=== PATIENT | female | born 1960 | race Caucasian/White ===

== ENCOUNTER → 2017-05-22 12:52 | Outpatient (CLI) | payer OTHER, SELFPAY ==
[2017-05-22 13:38] LABS: Absolute Lymphocyte Count 1.75 X10^3/ul (0.83-4.51); Absolute Neutrophil Count 5.5 X10^3/uL (2.0-7.7); Basophil# 0.02 X10^3/uL; Basophil% 0.3 % (0-1); Eosinophil# 0.14 X10^3/uL; Eosinophils% 1.8 % (0-5); Hematocrit 37.7 % (37-47); Hemoglobin 11.6 g/dl (12.0-15.0); Lymphocyte # 1.75 X10^3/ul (4.0); Lymphocyte % 22.3 % (19-41); Mean Corp Hgb Conc 30.8 g/gl (32-36); Mean Corpuscular Volume 87.7 fL (81-99); Mean Platelet Vol. 9.5 fl (6.2-12.0); Monocyte# 0.47 X10^3/uL; Neutrophil # 5.47 X10^3/uL (2.7-7.7); Neutrophil % 69.5 % (47-70); POSITIVE COUNT NO; POSITIVE DIFFERENTIAL NO; POSITIVE MORPHOLOGY NO; Platelet Count 231 K/mm3 (150-450); RBC Distribution Width CV 13.8 % (11.6-14.6); RBC Distribution Width SD 43.8 fl (35.1-43.9); White Blood Count 7.9 K/mm3 (4.4-11.0)
[2017-05-22 14:06] LABS: ALB/GLOB Ratio 1.1 RATIO (0.9-2.4); AST(SGOT) 12 U/L (15-37); Alanine Aminotransfer ALT/SGPT 18 U/L (13-56); Albumin, Serum 3.5 g/dL (3.2-5.0); Alkaline Phosphatase 93 U/L (45-117); Anion Gap 6 (5-15); BUN 14 mg/dL (7-18); BUN/Creat Ratio 16.4 RATIO (10-20); Calcium,Total 8.3 mg/dL (8.5-10.1); Chloride 107 mmol/L (98-107); Cholesterol 209 mg/dL (200); Creatinine, Serum 0.85 mg/dL (0.55-1.02); EST Glomerular Filtration Rate 73 mL/min (>60); Est Glom Filt Rate - Afr Amer 88 mL/min (>60); Globulin 3.3 g/dL (2.2-4.2); Glucose 82 mg/dL (74-106); High Density Lipoprotein 36 mg/dL; Potassium 4.2 mmol/L (3.5-5.1); Protein, Total 6.8 g/dL (6.4-8.2); Sodium Level 141 mmol/L (136-145); Triglycerides 444 mg/dL
[2017-05-26 11:25] LABS: ANTINUCLEAR ANTIBODIES DIRECT Negative (Negative)
== END ==
PROVIDERS: Family Provider Family Medicine; PCP Family Medicine; Visit Provider Family Medicine
DX: I49.9 Cardiac arrhythmia, unspecified (principal); L71.9 Rosacea, unspecified; M79.7 Fibromyalgia; R53.83 Other fatigue
CPT/HCPCS: 36415; 80053; 80061; 85025; 86038

== ENCOUNTER 2018-10-26 16:30 | Inpatient (IN) | payer OTHER, SELFPAY ==
[2018-10-26] VITALS (11 sets, daily range): BP systolic 121–154; BP diastolic 73–95; PULSE 98–126; RESP 18–26; TEMP 36.6–38.5; O2SAT 88–96; BMI 34.7; BMI 36.1
--- NOTE | 2018-10-26 16:44 | EKG12_ITS ---
Test Reason : SOB Blood Pressure : / mmHG Vent. Rate : 121 BPM Atrial Rate : 121 BPM P-R Int : 120 ms QRS Dur : 078 ms QT Int : 330 ms P-R-T Axes : 054 044 065 degrees QTc Int : 468 ms Sinus tachycardia Nonspecific T wave abnormality Abnormal ECG Confirmed by CHANNING FITZPATRICK ([id number]), television news video editor RM CAMARA ([id number]) on 11/01/2018 2:05:47 PM Referred By: JEANETTE Confirmed By:CHANNING FITZPATRICK
--- NOTE | 2018-10-26 16:50 | ED.DCSUM_ITS ---
History of Present Illness Chief Complaint: Shortness of Breath Informant: Patient, Significant Other Onset: Days - Cough for approximately 7 days and shortness of breath for approximately 3 days. Context: Sudden Onset Timing: Continuous Quality: Nonproductive cough and dyspnea Location: Respiratory Current Severity: Moderate Maximum Severity: Severe Worsened by: Walking Relieved by: Nothing Associated Symptoms: Previously documented otherwise negative Narrative: Patient is a middle-age woman with history of breast cancer who developed bilateral pulmonary embolus and DVT after she was placed on tamoxifen. She was on Eliquis for a short time.. She states she is cancer free. She presents with cough for 1 week that is nonproductive. Other family members have been ill with nonproductive cough. She reports shortness of breath for the past 3 days. She denies rhinorrhea, congestion or postnasal drainage. She denies decreased hearing, ringing or ears or ear pain. She denies sore throat. She denies chest pain of any type. She denies leg pain, swelling or discoloration. She denies GI symptoms. She does report subjective fever with no night sweats. Prior similar symptoms: No Recent Illness/Hospitalization: No - Past Medical History (1) Breast cancer Status: Acute (2) History of pulmonary embolus (PE) Status: Acute (3) History of DVT of lower extremity Status: Acute (4) History of depression Status: Acute Past Medical History - Allergies and Home Meds Allergies/Adverse Reactions: Allergies No Known Allergies Allergy (Verified 10/26/18 16:32) Primary Care Physician: Radha Eduardo [Primary Care Provider] - Prior records reviewed: Yes Surgical History: mastectomy, - Lives: Spouse/ Significant Other Smoking Status: Never smoker Alcohol: None Drugs: None Review of Systems General: Reports: Fever, Subjective. Denies: Chills, Malaise, Sweats, Weight loss, - Eyes: Denies: Visual changes - bilaterally, Blurred Vision - bilaterally ENT: Denies: Bilateral ear pain, Rhinorrhea, Sore throat Cardiovascular: Denies: Chest pain, Palpitations, Heart racing Respiratory: Reports: Dyspnea, Cough, Dyspnea on exertion. Denies: Sputum, Orthopnea, Paroxysmal nocturnal dyspnea Gastrointestinal: Denies: Abdominal pain, Nausea, Vomiting, Diarrhea, Melena, Hematochezia Genitourinary: Denies: Dysuria, Hematuria, Frequency Musculoskeletal: Denies: Myalgias, Arthralgias, Neck pain, Back pain, Swelling, Extremity Pain, -, - Skin: Denies: Rash, Wounds Neurological: Denies: Headache, Weakness, Numbness Endocrine: Denies: Polyuria, Polydipsia Hematologic: Denies: Easy bruising, Easy bleeding Allergy: Denies: Uticaria, Swelling of the mouth Physical Exam Vital Signs/Narrative: Vital Signs Temp Pulse Resp BP Pulse Ox 10/26/18 16:30 98 F 126 H 26 H 154/95 H 88 Inital Vital Signs reviewed: Yes General: Well nourished, Well developed, No Acute Distress Head: Normocephalic, Atraumatic Eyes: Perrl, EOMI. Negative for: Pale conjunctiva, Scleral icterus ENT: Moist mucous membranes, No rhinorrhea, TM's clear Neck: Supple, Nontender Cardiovascular: Regular rhythm, No murmurs, Normal S1, Normal S2, Tachycardia Respiratory: Chest nontender, Rales - Bilaterally, Rhonchi - Right lower lobe posteriorly, Diminished. Negative for: No distress, CTA bilaterally Abdomen: Soft, Nontender, Nondistended, Normal bowel sounds, No masses Back: Nontender, Normal Inspection Extremities: Nontender, No edema, - - There is no asymmetry, swelling, discoloration, leg vein distention, palpable cords or tenderness along the distribution of the deep venous system. Skin: No rash, No Trauma, Pallor. Negative for: Cyanosis, Diaphoresis, Jaundice, Rash Neurological: Alert, Oriented x3, Cranial nerves II-XII grossly intact, Normal Strength, Normal Sensation Psychological: Normal affect, Normal Mood Diagnostic/Tx/Re-eval Chest X-Ray - ED: 2 View, Read by ED Physician, Normal, Heart, Mediastinum, Bony Structures, Right Infiltrate, Left Infiltrate Impressions Chest X-Ray 10/26/18 17:15 IMPRESSION: Scattered patchy bilateral infiltrates. Degenerative changes of the thoracic spine. Electronically Signed: Jono Ruth MD at 17:26 EDT , Service support , 10/26/18 17:15 Chest PA and Lateral [RAD] Stat Laboratory Results 10/26/18 10/26/18 10/26/18 17:00 17:00 17:02 WBC 9.1 RBC 3.88 L Hgb 11.1 L Hct 35.0 L MCV 90.2 MCH 28.6 MCHC 31.7 L RDW Std Deviation 47.2 H RDW Coeff of Rhys 14.4 Plt Count 152 MPV 9.7 Immature Gran % (Auto) 0.400 Neut % (Auto) 84.4 H Lymph % (Auto) 6.6 L [place] % (Auto) 7.5 Eos % (Auto) 0.8 Baso % (Auto) 0.3 Absolute Neuts (auto) 7.6 Absolute Lymphs (auto) 0.60 L Nucleated RBC % 0 Differential Comment Sodium 143 Potassium 3.9 Chloride 108 H Carbon Dioxide 28.0 Anion Gap 7 BUN 11 Creatinine 1.06 H Estim Creat Clear Calc 48.44 Est GFR (MDRD) Af Amer 69 Est GFR (MDRD) Non-Af 57 L BUN/Creatinine Ratio 10.4 Glucose 118 H Lactic Acid 1.2 Calcium 8.1 L Total Bilirubin 0.30 AST 19 ALT 25 Alkaline Phosphatase 92 Troponin I < 0.015 Total Protein 6.8 Albumin 3.4 Globulin 3.4 Albumin/Globulin Ratio 1.0 X-ray per my interpretation reveals bilateral interstitial infiltrate right upper lobe, right lower lobe and left lower lobe. White count is normal. Patient slightly anemic. Lactate is normal 1.2. Conference of metabolic panel is marked for slight elevation in creatinine of 1.06 with a GFR of 57. Troponin is less than 0.015. Since there is no expiration of patient's hypoxia and abnormal auditory findings CTA of the chest is not indicated. Will treat with Rocephin and azithromycin for community-acquired pneumonia. - EKG Initial EKG Interpretation: Sinus Tachycardia - Ventricular rate is 121. IL interval is 120 ms. QS duration 70 ms. QT duration 330 ms. [place] is normal. There are nonspecific lateral changes noted. There was no old EKG for comparison. - Medical Decision Making With history of cough and dyspnea need to evaluate for pneumonia. Chest x-ray and appropriate blood work was obtained. If chest x-ray is negative patient will need a CTA of her chest to evaluate for pulmonary embolus. EKG was obtained to assess for cardiac ischemia or right heart strain which would raise concern for pulmonary embolus. Patient was placed on oxygen. Since she has bilateral rales albuterol was ordered since rhonchi were noted. She was informed of results and need for admission. ED Disposition - Plan for ED Patient: Disposition: Home or Assisted Living Diagnosis: Respiratory failure with hypoxia, Sinus tachycardia by electrocardiogram, Bilateral pneumonia, Anemia, unspecified Referrals: Radha Eduardo [Primary Care Provider] -
--- NOTE | 2018-10-26 16:50 | NURSING ---
NO OLD EKGS
[2018-10-26] MEDS: 0.9% Normal Saline 1,000 ML 1000 ML IV (16:57)
--- NOTE | 2018-10-26 17:15 | RAD_ITS ---
STUDY: X-RAY CHEST REASON FOR EXAM: Female, 57 years old. Cough x1 week, increased shortness of breath TECHNIQUE: PA and lateral views of the chest. COMPARISON: None. FINDINGS: adult nurse practitioner leads are seen. There are patchy infiltrates of the right upper lobe, left perihilar region, and right lower lobe. There is no demonstrated pleural abnormality. Normal size heart. Normal mediastinum and radha. Normal visualized pulmonary arteries. Normal visualized aortic arch and descending thoracic aorta. There are diffuse degenerative changes of the visualized thoracic spine. Normal visualized ribs, clavicles, and shoulders. There is no demonstrated abnormality of the visualized soft tissue structures of the upper abdomen. RAD/Chest PA and Lateral IMPRESSION: Scattered patchy bilateral infiltrates. Degenerative changes of the thoracic spine. Electronically Signed: Jono Ruth MD at 17:26 EDT , Service support ,
[2018-10-26 17:21] LABS: Absolute Neutrophil Count 7.6 X10^3/uL (2.0-7.7); Basophil# 0.03 X10^3/uL; Basophil% 0.3 % (0-1); Eosinophil# 0.07 X10^3/uL; Eosinophils% 0.8 % (0-5); Hemoglobin 11.1 g/dL (12.0-15.0); Lymphocyte % 6.6 % (19-41); Mean Corp Hgb Conc 31.7 g/dL (32-36); Mean Corpuscular Hgb 28.6 pg (27.0-32.0); Mean Corpuscular Volume 90.2 fL (81-99); Mean Platelet Vol. 9.7 fl (6.2-12.0); Monocyte# 0.68 X10^3/uL; Monocyte% 7.5 % (0-10); NRBC Flagged by Analyzer 0 % (0-5); Neutrophil # 7.64 X10^3/uL (2.7-7.7); Neutrophil % 84.4 % (47-70); POSITIVE DIFFERENTIAL YES; Platelet Count 152 K/mm3 (150-450); RBC Distribution Width CV 14.4 % (11.6-14.6); RBC Distribution Width SD 47.2 fl (35.1-43.9); Red Blood Count 3.88 M/mm3 (4.2-5.4); White Blood Count 9.1 K/mm3 (4.4-11.0)
[2018-10-26] MEDS: Albuterol 2.5 MG/3 ML VIAL.NEB. INHALATION ×2 (17:22→22:06)
[2018-10-26 17:30] LABS: Differential Indicated SCAN CRITERIA MET
[2018-10-26 17:38] LABS: AST(SGOT) 19 U/L (15-37); Alanine Aminotransfer ALT/SGPT 25 U/L (13-56); Albumin, Serum 3.4 g/dL (3.2-5.0); Alkaline Phosphatase 92 U/L (45-117); Anion Gap 7 (5-15); BUN 11 mg/dL (7-18); BUN/Creat Ratio 10.4 RATIO (10-20); Calcium,Total 8.1 mg/dL (8.5-10.1); Chloride 108 mmol/L (98-107); Creatinine, Serum 1.06 mg/dL (0.55-1.02); EST Glomerular Filtration Rate 57 mL/min (>60); Est Glom Filt Rate - Afr Amer 69 mL/min (>60); Estimated Creatinine Clearance 48.44 ml/min; Globulin 3.4 g/dL (2.2-4.2); Glucose 118 mg/dL (74-106); Potassium 3.9 mmol/L (3.5-5.1); Protein, Total 6.8 g/dL (6.4-8.2); Sodium Level 143 mmol/L (136-145)
[2018-10-26 17:44] LABS: International Normalized Ratio 1.1; Prothrombin Time (Protime)PT. 13.5 SECONDS (11.7-14.9)
[2018-10-26 17:45] LABS: Partial Thromboplast Time 51.7 Seconds (24.1-36.2)
[2018-10-26 17:52] LABS: Lactic Acid 1.2 mmol/L (0.4-2.0)
--- NOTE | 2018-10-26 18:49 | PCM.HP.STD ---
Problem List (1) Depression Status: Chronic (2) Fibromyalgia Status: Chronic (3) History of breast cancer Status: Chronic Comment: Status post left mastectomy. (4) History of pulmonary embolus (PE) Status: Chronic (5) History of DVT of lower extremity Status: Chronic (6) Bilateral pneumonia Status: Acute History of Present Illness Date of Admission: 10/26/18 Chief Complaint: Cough, shortness of breath. The patient is a 57 year old F with past medical history as mentioned above presented to the emergency room because of cough and shortness of breath. Her illness started around 7 days ago with cough that was dry without sputum production, associated with mild shortness of breath in the beginning and without aggravating or relieving factors. In the last 3 days, she has been having worsening shortness of breath, initially was exertional and since yesterday, she has been short of breath even at rest, aggravated by any type of activity, minimally relieved with rest, continued to have dry cough without sputum production, associated with mild wheezing and weakness. She did report subjective low-grade fever at home. She stated that 1 of her grandkids was sick with cough and common cold. In the emergency department, patient was febrile, tachycardic, blood pressure was stable, was hypoxic with pulse ox of 88% on room air. Her routine blood work was remarkable for hemoglobin of 11.1 g/dL, otherwise normal. LFT was unremarkable. EKG revealed sinus tachycardia without evidence of acute ischemic changes. Troponin was negative. Chest x-ray revealed bilateral basilar infiltrate, right upper lobe infiltrate. She is being admitted for bilateral community acquired pneumonia with sepsis complicated by acute hypoxic respiratory failure. Past Medical History Past Medical History (Chronic Problems): Chronic Problems Depression (Chronic) Fibromyalgia (Chronic) History of breast cancer (Chronic) Status post left mastectomy. History of pulmonary embolus (PE) (Chronic) History of DVT of lower extremity (Chronic) Allergies No Known Allergies Allergy (Verified 10/26/18 16:32) Home Medications: Ambulatory Orders Medication Instructions Recorded Acetaminophen [Tylenol Extra 1,000 mg PO TID PRN PRN 10/26/18 Strength] Aspirin/Acetaminophen/Caffeine 2 tab PO DAILY PRN PRN 10/26/18 [Excedrin Extra Strength Caplet] Dextromethorphan Polistirex 10 ml PO Q4H PRN PRN 10/26/18 [Delsym] Escitalopram Oxalate 20 mg PO DAILY 10/26/18 Gabapentin [Neurontin] 300 mg PO BID 10/26/18 Gabapentin [Neurontin] 900 mg PO QHS 10/26/18 Ibuprofen 800 mg PO BID PRN PRN 10/26/18 Omeprazole [Prilosec] 20 mg PO QHS 10/26/18 Trazodone HCl 200 mg PO QHS 10/26/18 buPROPion XL [Wellbutrin Xl] 150 mg PO DAILY 10/26/18 Surgical History: mastectomy, - - Left breast reconstructive surgery. 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 Denies: Chills, Weakness, Fatigue Eyes: Denies: Blurred vision, Double vision, Drainage, Redness HEENT: Denies: Difficulty Hearing, Ear Pain, Eye Pain, Nasal Congestion, Sore Throat Cardiovascular: Denies: Chest Pain, Chest Pressure, Chest Tightness, Heaviness, Light Headedness, Palpitations, Syncope Respiratory: Reports: Cough, Shortness of Breath, Shortness of breath upon exertion, Wheezing. Denies: Hemoptysis, Pleuritic Pain, Sputum production Gastrointestinal: Denies: Abdominal Pain, Constipation, Diarrhea, Nausea, Vomiting Genitourinary: Denies: Dysuria, Frequency, Hematuria Musculoskeletal: Denies: Arm Pain, Back Pain, Foot Pain Skin: Denies: Dryness, Rash Neurological: Denies: Balance problems, Double vision, Change in Speech, Slurred speech, Confusion, Focal weakness, Headaches, Incoordination, Numbness Psychiatric: Reports: Depression. Denies: Anxiety Endocrine: Denies: Change in Body Habitus, Polydipsia, Polyuria VTE Information - Inpt Only VTE Present on Admission: No VTE Mechan Device Prophylaxis: None VTE Pharm Prophylaxis ordered?: Yes Patient Problems: Active and Suspected Problems Sinus tachycardia by electrocardiogram (Acute) Bilateral pneumonia (Acute) - Physical Exam General: Alert, Oriented x3, Cooperative, - - Moderately short of breath. HEENT: Atraumatic, PERRLA, EOMI, Normocephalic Oral: Moist Mucosa, No Gingival or Mucosal Lesions/ Ulcerations Neck: Supple, No JVD, Negative Carotid Bruits, Trachea Midline, Thyroid Normal Size and Texture Lungs: No wheeze, Diminished, Rhonchi, Short of Breath, - - Decreased breath sounds at the bases, faint crackles in the left base. Rhonchi. Cardiovascular: Regular rate, Regular Rhythm, Normal S1, Normal S2, No murmurs, PMI Normal, Tachycardic Abdomen: Bowel Sounds Present, Soft, Non Tender, Non-Distended, No Hepato-splenomegaly Extremities: No clubbing, No cyanosis, No edema Skin: No rashes, No breakdown Lymphatic: No Cervical, Supraclavicular, or Inguinal Adenopathy Neurological: Cranial nerves II-XII grossly intact, Motor Exam 5/5 strength throughout Psych/Mental Status: Normal Affect, Appropriate, Alert and oriented to time, place, person, mood and affect Vital Signs Temp Pulse Resp BP Pulse Ox 101.3 F H 120 H 24 H 137/86 H 93 10/26/18 18:10 10/26/18 18:10 10/26/18 18:10 10/26/18 18:10 10/26/18 18:10 Oxygen Flow Rate (L/min) 2 Oxygen Delivery Method Nasal Cannula Weight: 196 lb Body Mass Index (BMI) 34.7 Intake and Output for Last 24 Hours 10/24/18 10/25/18 10/26/18 23:59 23:59 23:59 Intake Total 1000 / 1000 Balance 1000 / 1000 Laboratory Tests Past 24 Hrs 10/26/18 10/26/18 10/26/18 17:00 17:00 17:00 WBC 9.1 RBC 3.88 L Hgb 11.1 L Hct 35.0 L MCV 90.2 MCH 28.6 MCHC 31.7 L RDW Std Deviation 47.2 H RDW Coeff of Rhys 14.4 Plt Count 152 MPV 9.7 Immature Gran % (Auto) 0.400 Neut % (Auto) 84.4 H Lymph % (Auto) 6.6 L [place] % (Auto) 7.5 Eos % (Auto) 0.8 Baso % (Auto) 0.3 Absolute Neuts (auto) 7.6 Absolute Lymphs (auto) 0.60 L Nucleated RBC % 0 Differential Comment PT Pending INR Pending APTT Pending Sodium 143 Potassium 3.9 Chloride 108 H Carbon Dioxide 28.0 Anion Gap 7 BUN 11 Creatinine 1.06 H Estim Creat Clear Calc 48.44 Est GFR (MDRD) Af Amer 69 Est GFR (MDRD) Non-Af 57 L BUN/Creatinine Ratio 10.4 Glucose 118 H Lactic Acid Calcium 8.1 L Total Bilirubin 0.30 AST 19 ALT 25 Alkaline Phosphatase 92 Troponin I < 0.015 Total Protein 6.8 Albumin 3.4 Globulin 3.4 Albumin/Globulin Ratio 1.0 10/26/18 17:02 WBC RBC Hgb Hct MCV MCH MCHC RDW Std Deviation RDW Coeff of Rhys Plt Count MPV Immature Gran % (Auto) Neut % (Auto) Lymph % (Auto) [place] % (Auto) Eos % (Auto) Baso % (Auto) Absolute Neuts (auto) Absolute Lymphs (auto) Nucleated RBC % Differential Comment PT INR APTT Sodium Potassium Chloride Carbon Dioxide Anion Gap BUN Creatinine Estim Creat Clear Calc Est GFR (MDRD) Af Amer Est GFR (MDRD) Non-Af BUN/Creatinine Ratio Glucose Lactic Acid 1.2 Calcium Total Bilirubin AST ALT Alkaline Phosphatase Troponin I Total Protein Albumin Globulin Albumin/Globulin Ratio Clinical Impression(s) from Imaging Studies Chest X-Ray 10/26/18 17:15 IMPRESSION: Scattered patchy bilateral infiltrates. Degenerative changes of the thoracic spine. Electronically Signed: Jono Ruth MD at 17:26 EDT , Service support , Assessment/Plan All Active Problems Sinus tachycardia by electrocardiogram (Acute) Bilateral pneumonia (Acute) This is a 57 years old female patient presented to the medicine because of 1 week history of dry cough, shortness of breath and subjective fever, found to have bilateral infiltrate on chest x-ray and she is being admitted for bilateral community acquired pneumonia with sepsis and complicated by acute hypoxic respiratory failure. #1 acute multilobar bilateral community acquired pneumonia/sepsis: Patient is septic based on tachycardia, fever, tachypnea and obvious source of infection. Lactic acid was normal. Chest x-ray reviewed. Plan: Admit to PCU, cardiac monitoring, IV fluids, blood culture, urine culture, sputum culture, urinalysis, pneumococcal and Legionella antigen, start IV Rocephin and Zithromax, DuoNeb every 6 hours, albuterol as needed, chest physiotherapy, incentive spirometer, repeat CBC and BMP tomorrow morning, PT OT evaluation and treatment. #2 acute hypoxic respiratory failure: Secondary to above. Patient never smoked, never been on oxygen at home. Initially, pulse ox was 88 % on room air. Plan: IV antibiotics, bronchodilators, chest physical therapy, O2 by nasal cannula. #3 history of breast cancer: Status post left mastectomy, history of left reconstructive breast surgery. In remission, never received chemotherapy. #4 fibromyalgia: Stable, continue Tylenol as needed, Neurontin. #5 depression: Stable, continue Wellbutrin and trazodone. #6 history of PE/DVT: Patient was on Eliquis for this, completed treatment. #7 DVT prophylaxis: Subcutaneous Lovenox. This note was generated with [employer] dictation software. It may contain incorrect words, spelling, and punctuation that were not noted in checking the note before signing. Code Visit Inpatient E&M: 46847 Init Hosp L3
[2018-10-26] MEDS: 0.9% Normal Saline 1,000 ML 100 ML IV (20:33)
[2018-10-26] MEDS: Ceftriaxone 1 GM/50 ML BAG IV (20:36)
[2018-10-26 21:04] LABS: Color, Urine Yellow (Yellow); Glucose, Dipstick Normal (Normal); Ketone-Dipstick Negative (Negative); Leukocyte Esterase-Dipstick Negative /ul (Negative); Nitrite-Dipstick Negative (Negative); Occult Blood-Urine Negative /ul (Negative); Protein-Dipstick 30 mg/dl (Negative); Urine Bilirubin Dipstick Negative (Negative); Urine Clarity Sl. Cloudy (Clear); Urine Urobilinogen Normal (Normal)
[2018-10-26] MEDS: guaiFENesin 1,200 MG Tablet 1200 MG PO (22:26)
[2018-10-26] MEDS: Pantoprazole Sodium 20 MG Tablet PO (22:26)
[2018-10-26] MEDS: Gabapentin 300 MG Capsule 900 MG PO (22:26)
[2018-10-26] MEDS: traZODone 100 MG Tablet 200 MG PO (22:26)
[2018-10-26] MEDS: Ibuprofen 400 MG Tablet 800 MG PO (22:30)
[2018-10-27] VITALS (27 sets, daily range): BP systolic 102–161; BP diastolic 59–103; PULSE 68–130; RESP 16–34; TEMP 36.6–37.1; O2SAT 93–97
[2018-10-27 05:25] LABS: Absolute Lymphocyte Count 1.13 X10^3/uL (0.83-4.51); Absolute Neutrophil Count 5.5 X10^3/uL (2.0-7.7); Basophil# 0.03 X10^3/uL; Basophil% 0.4 % (0-1); Eosinophil# 0.06 X10^3/uL; Eosinophils% 0.8 % (0-5); Hematocrit 30.9 % (37-47); Hemoglobin 9.6 g/dL (12.0-15.0); Lymphocyte # 1.13 X10^3/ul (4.0); Lymphocyte % 15.2 % (19-41); Mean Corp Hgb Conc 31.1 g/dL (32-36); Mean Corpuscular Hgb 28.5 pg (27.0-32.0); Mean Corpuscular Volume 91.7 fL (81-99); Mean Platelet Vol. 10.1 fl (6.2-12.0); Monocyte% 9.4 % (0-10); NRBC Flagged by Analyzer 0 % (0-5); Neutrophil # 5.47 X10^3/uL (2.7-7.7); Neutrophil % 73.8 % (47-70); Platelet Count 142 K/mm3 (150-450); RBC Distribution Width CV 14.6 % (11.6-14.6); RBC Distribution Width SD 49.4 fl (35.1-43.9); Red Blood Count 3.37 M/mm3 (4.2-5.4); White Blood Count 7.4 K/mm3 (4.4-11.0)
[2018-10-27 05:38] LABS: Anion Gap 7 (5-15); BUN 11 mg/dL (7-18); BUN/Creat Ratio 11.7 RATIO (10-20); Calcium,Total 7.6 mg/dL (8.5-10.1); Chloride 112 mmol/L (98-107); Creatinine, Serum 0.94 mg/dL (0.55-1.02); EST Glomerular Filtration Rate 65 mL/min (>60); Est Glom Filt Rate - Afr Amer 79 mL/min (>60); Estimated Creatinine Clearance 52.22 ml/min; Glucose 108 mg/dL (74-106); Potassium 3.8 mmol/L (3.5-5.1); Sodium Level 145 mmol/L (136-145)
[2018-10-27] MEDS: Ipratropium/Albuterol Sulfate 3 ML AMPUL.NEB INHALATION ×2 (06:52→13:04)
[2018-10-27] MEDS: 0.9% Normal Saline 1,000 ML 100 ML IV (07:08)
[2018-10-27] MEDS: 0.9% NaCl Peripheral Flush Adult/Peds IV ×3 (07:09→16:32)
[2018-10-27] MEDS: buPROPion (XL) 150 MG TABLET.XL PO (08:35)
[2018-10-27] MEDS: Escitalopram Oxalate 20 MG Tablet PO (08:35)
[2018-10-27] MEDS: Gabapentin 300 MG Capsule PO ×2 (08:35→16:35)
[2018-10-27] MEDS: guaiFENesin 1,200 MG Tablet 1200 MG PO ×2 (08:35→21:13)
[2018-10-27] MEDS: Enoxaparin 40 MG/0.4 ML Syringe SC (08:38)
[2018-10-27] MEDS: Ibuprofen 400 MG Tablet 800 MG PO ×2 (08:38→21:19)
--- NOTE | 2018-10-27 08:39 | PN_ITS ---
Patient Problems: Active and Suspected Problems Respiratory failure with hypoxia (Acute) Anemia, unspecified (Acute) Sinus tachycardia by electrocardiogram (Acute) Bilateral pneumonia (Acute) Subjective: Day #2 Rocephin and azithromycin The patient is a 57-year-old female with a past medical history of depression, fibromyalgia, breast cancer (status post left mastectomy), pulmonary emboli, DVTs of the lower extremity and obesity who presented to the emergency department at [facility] on 10/26/2018 complaining of cough and shortness of breath that started approximately 7 days prior to presentation to the emergency department. Vital signs at presentation to the emergency department were temperature 98 ?F, pulse rate 126, blood pressure 154/95, respiratory rate 26 and she was 88% saturated on room air. Pulse ox on a 2 L nasal cannula was 95%. White blood cell count was 9.1 with a left shift. Hemoglobin was 11.1 and platelets are 152,000. PTT was prolonged at 51.7 the PT was within normal limits. CMP was remarkable for an increased creatinine at 1.06. Creatinine in May 2017 was 0.85. A random blood sugar was 118. Lactic acid was normal at 1.2. LFTs were unremarkable. UA was negative for leukocyte esterase. Chest x-ray showed scattered patchy bilateral infiltrates. She was admitted to the hospital with sepsis secondary to community-acquired pneumonia. She was started on Rocephin, azithromycin and aerosolized bronchodilators. All events of the past 24 hours of been reviewed. T-max is 101.3 current temp is 98.3. Tachycardia has improved with hydration and control of the fever. Blood pressures are stable. She is 93 to 94% saturated on the 3 L nasal cannula. All lab was personally reviewed. The white blood cell count today is 7.4 with 73.8% neutrophils. Hemoglobin is 9.6 and the MCV is 91.7 with an increased RDW standard deviation of 49.4. Platelets are mildly decreased at 142,000 today. Creatinine has improved with hydration and is 0.94 today, down from 1.06 at admission. Legionella and streptococcal antigens in the urine were negative. Urine and blood cultures are pending. Respiratory panel is negative. She tells me that her grandchildren have recently been sick with coughs. She has chronic PND and there has been no change recently. Denies sore throat, diarrhea, CP, palpitations, calf pain, hemoptysis. cough is dry. She had VTE in the past, about 2 years ago, and it was thought to be due to Tamoxifen. Anticoagulation was stopped after about 6 months. She had the mastectomy in 2013. She has previously been seen by an oncologist in [place] but no longer follows with oncology. Her PCP orders her MMG's. - Physical Exam General: Alert, Oriented x3, Cooperative, Well developed, Well nourished, - - pale HEENT: Atraumatic, PERRLA, EOMI, Normocephalic Oral: Dry Mucosa Neck: Supple, Negative Carotid Bruits, No Nodes, Trachea Midline Lungs: No rales, Diminished, Tachypneic, Wheezes, - - Positive conversational dyspnea, no accessory muscle use Cardiovascular: Regular rate, Normal S1, Normal S2, No murmurs, No Gallop, Tachycardic, - - Telemetry shows sinus tachycardia with occasional PVC Abdomen: Bowel Sounds Present, Soft, Non Tender, Non-Distended Extremities: No clubbing, No cyanosis, No edema, No Calf Tenderness, Peripheral Pulses Normal, - - Negative Homans sign, negative Agapito. the right calf feels more firm than the left Skin: No rashes, No breakdown Musculoskeletal: No Muscle Wasting Neurological: Cranial nerves II-XII grossly intact, Neuro grossly intact Psych/Mental Status: Normal Affect, Appropriate Vital Signs Temp Pulse Resp BP Pulse Ox 98.3 F 113 H 16 108/67 93 10/27/18 03:55 10/27/18 07:30 10/27/18 06:52 10/27/18 03:55 10/27/18 06:52 Oxygen Flow Rate (L/min) 3 Oxygen Delivery Method Nasal Cannula Weight: 197 lb 8.547 oz Body Mass Index (BMI) 36.1 Intake and Output for Last 24 Hours 10/25/18 10/26/18 10/27/18 23:59 23:59 23:59 Intake Total 2170 / 2170 715 / 715 Balance 2170 / 2170 715 / 715 Microbiology Past 72 Hours 10/26/18 20:20 Streptococcus pneumoniae Antigen (M - Final Urine, Clean Catch 10/26/18 20:20 Legionella Antigen - Final Urine, Clean Catch Laboratory Tests Past 24 Hrs 10/26/18 10/26/18 10/26/18 17:00 17:00 17:00 WBC 9.1 RBC 3.88 L Hgb 11.1 L Hct 35.0 L MCV 90.2 MCH 28.6 MCHC 31.7 L RDW Std Deviation 47.2 H RDW Coeff of Rhys 14.4 Plt Count 152 MPV 9.7 Immature Gran % (Auto) 0.400 Neut % (Auto) 84.4 H Lymph % (Auto) 6.6 L Dillon % (Auto) 7.5 Eos % (Auto) 0.8 Baso % (Auto) 0.3 Absolute Neuts (auto) 7.6 Absolute Lymphs (auto) 0.60 L Nucleated RBC % 0 Differential Comment PT 13.5 INR 1.1 APTT 51.7 H Sodium 143 Potassium 3.9 Chloride 108 H Carbon Dioxide 28.0 Anion Gap 7 BUN 11 Creatinine 1.06 H Estim Creat Clear Calc 48.44 Est GFR (MDRD) Af Amer 69 Est GFR (MDRD) Non-Af 57 L BUN/Creatinine Ratio 10.4 Glucose 118 H Lactic Acid Calcium 8.1 L Total Bilirubin 0.30 AST 19 ALT 25 Alkaline Phosphatase 92 Troponin I < 0.015 Total Protein 6.8 Albumin 3.4 Globulin 3.4 Albumin/Globulin Ratio 1.0 Urine Color Urine Clarity Urine pH Ur Specific [place] Urine Protein Urine Glucose (UA) Urine Ketones Urine Occult Blood Urine Nitrite Urine Bilirubin Urine Urobilinogen Ur Leukocyte Esterase 10/26/18 10/26/18 10/27/18 17:02 20:20 05:15 WBC 7.4 RBC 3.37 L Hgb 9.6 L Hct 30.9 L MCV 91.7 MCH 28.5 MCHC 31.1 L RDW Std Deviation 49.4 H RDW Coeff of Rhys 14.6 Plt Count 142 L MPV 10.1 Immature Gran % (Auto) 0.400 Neut % (Auto) 73.8 H Lymph % (Auto) 15.2 L Dillon % (Auto) 9.4 Eos % (Auto) 0.8 Baso % (Auto) 0.4 Absolute Neuts (auto) 5.5 Absolute Lymphs (auto) 1.13 Nucleated RBC % 0 Differential Comment PT INR APTT Sodium Potassium Chloride Carbon Dioxide Anion Gap BUN Creatinine Estim Creat Clear Calc Est GFR (MDRD) Af Amer Est GFR (MDRD) Non-Af BUN/Creatinine Ratio Glucose Lactic Acid 1.2 Calcium Total Bilirubin AST ALT Alkaline Phosphatase Troponin I Total Protein Albumin Globulin Albumin/Globulin Ratio Urine Color Yellow Urine Clarity Sl. Cloudy Urine pH 5.0 Ur Specific [place] 1.020 Urine Protein 30 H Urine Glucose (UA) Normal Urine Ketones Negative Urine Occult Blood Negative Urine Nitrite Negative Urine Bilirubin Negative Urine Urobilinogen Normal Ur Leukocyte Esterase Negative 10/27/18 05:15 WBC RBC Hgb Hct MCV MCH MCHC RDW Std Deviation RDW Coeff of Rhys Plt Count MPV Immature Gran % (Auto) Neut % (Auto) Lymph % (Auto) Dillon % (Auto) Eos % (Auto) Baso % (Auto) Absolute Neuts (auto) Absolute Lymphs (auto) Nucleated RBC % Differential Comment PT INR APTT Sodium 145 Potassium 3.8 Chloride 112 H Carbon Dioxide 26.0 Anion Gap 7 BUN 11 Creatinine 0.94 Estim Creat Clear Calc 52.22 Est GFR (MDRD) Af Amer 79 Est GFR (MDRD) Non-Af 65 BUN/Creatinine Ratio 11.7 Glucose 108 H Lactic Acid Calcium 7.6 L Total Bilirubin AST ALT Alkaline Phosphatase Troponin I Total Protein Albumin Globulin Albumin/Globulin Ratio Urine Color Urine Clarity Urine pH Ur Specific [place] Urine Protein Urine Glucose (UA) Urine Ketones Urine Occult Blood Urine Nitrite Urine Bilirubin Urine Urobilinogen Ur Leukocyte Esterase Medical Necessity - Tobacco Use Smoking Status: Never smoker Assessment/Plan All Active Problems Respiratory failure with hypoxia (Acute) Anemia, unspecified (Acute) Sinus tachycardia by electrocardiogram (Acute) Bilateral pneumonia (Acute) Day #2 Rocephin and azithromycin Impressions 1. CAP with multilobar infiltrates and a non-productive cough. Respiratory panel negative. Legionella and streptococcal antigens are negative. Continue Rocephin and azithromycin. Continue incentive spirometry and PEP. Continue aerosolized bronchodilators. Start steroids for the diminished BS's, poor air exchange and the wheezing. 2. 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 VTE was thought to be due to Tamoxifen and she has not been anticoagulated because the Tamoxifen was discontinued. She has been sick for a week and lying around. Has not seen an oncologist an PCP is doing surveillance for recurrent breast CA. With the ST and increased dyspnea past few days I am concerned about possible PE and am ordering a CTA of the chest. Also ordering TSH and T4 since her dtr has been diagnosed with possible Samuel's thyroiditis. If the TSH is normal and the CTA is negative will DC the Duoneb and Albuterol and start Atrovent aerosols. 3. hx of breast CA - mastectomy in 2013. 4. Fibromyalgia- gabapentin and ibuprofen continued 5. Obesity 6. Acute respiratory insufficiency with hypoxia 7. Normochromic normocytic anemia with an increased RDW Await the results of the urgent CTA. Code Visit Inpatient E&M: 26009 Subs Hosp L3
--- NOTE | 2018-10-27 11:29 | CASEMGMT ---
RN CM Assessment Presentation: Bilateral pneumonia. Intro role of CM and purpose of RN CM assessment to patient in room. Pt is awake, alert and able to participate in assessment. Demographics, PCP and Pharmacy verified. Pt states she is very independent, does not require any assistance with daily care. No oxygen use prior to admission. Discussed if O2 would be needed at home, CM would return to provide DME list and assist with set up. PCP: Dr. Mcgee Preferred [facility]acy[facility] Insurance: [employer] for [employer] Prescription Benefit: yes [place]NO[place]: , [place] Living Arrangements: Lives independently with her . Pt states no care needs with ADL's, home care. Transportation: drives or family can drive. DME: none HHC: none Patient DC goals: none DC PLAN: home. Pt continues on 2L [place], may need Home oxygen testing prior to discharge. Ricci FERGUSONN RN ACM
--- NOTE | 2018-10-27 15:04 | CT_ITS ---
STUDY: CTA CHEST REASON FOR EXAM: Female, 57 years old. Several day history of shortness of breath. History of pulmonary emboli. RADIATION DOSAGE (If Supplied By Facility): CTDIvol = ( 11.36 ) mGy, DLP = ( 557.54 ) mGycm TECHNIQUE: The examination was performed with the intravenous administration of 100 IV Isovue 300. Post-processing of the angiographic images was performed, with multiplanar reformation and 3D reconstruction. Individualized dose optimization techniques were used for this CT. COMPARISON: None. FINDINGS: A left-sided breast prosthesis is seen. Normal enhancement of the main pulmonary artery and right and left pulmonary arteries. Normal enhancement of the bilateral peripheral pulmonary arteries. There is no demonstrated pulmonary embolism. Normal thoracic aorta and visualized great vessels. There is no demonstrated aortic dissection. Normal heart and pericardium. There are visualized mediastinal lymph nodes, which are within normal size limits, and with normal morphology. Normal hilar regions. Normal visualized trachea and bronchi. The lungs are well expanded. Diffuse bilateral patchy infiltrates in the upper lobes as well as the lower lobes. There is also evidence of increased interstitial markings in both lungs suggestive of mild edema Small bilateral pleural effusions. Normal chest wall structures. There are degenerative changes of thoracic spine. There is a 1.6 cm x 1.6 cm hypodensity in the anterior aspect of the left lobe of the liver most likely representing a small cyst. CT/CTA Chest W/WO Contrast IMPRESSION: Small bilateral pleural effusions with bilateral pulmonary infiltrates. No evidence of pulmonary embolism. Electronically Signed: Gene Herron, at 15:51 EDT , Service support ,
--- NOTE | 2018-10-27 15:05 | ECHOCS_ITS ---
Reason For Study: DYSPNEA/SOB, ABN EKG, TACHYCARDIA Procedure This was a 2D Doppler, Color Flow transthoracic echocardiogram. The study was technically difficult. Exam performed portable in patient room. Left Ventricle Normal LV size. The estimated ejection fraction is 40-45 %. Stage 1 diastolic dysfunction. [place] : Hypokinetic. Anteroseptal Hypokinesis. Right Ventricle Normal RV size. Normal systolic function. Atria Normal left atrium. Normal right atrium. No doppler evidence for ASD. Mitral Valve There is no stenosis. No mitral valve insufficiency. Tricuspid Valve There is no tricuspid stenosis. Unable to estimate RV systolic pressure due to inadequate jet, pulmonary artery pressure probably normal. Aortic Valve Trisinus/trileaflet aortic valve. There is no aortic stenosis. No aortic valve insufficiency. Pulmonic Valve There is no pulmonic valvular stenosis. No pulmonic valve insufficiency. Great Vessels Normal aortic root. Pericardium/Pleural No pericardial effusion. Medication Diluted definity 3ml given slow IV push to enhance endocardial definition. MMode/2D Measurements & Calculations LVIDd: 5.7 cm IVSd: 1.0 cm Ao root diam: 3.2 cm LVIDs: 4.5 cm LVPWd: 1.1 cm RVDd: 3.8 cm FS: 21.6 % LAV(MOD-bp): 35.3 ml LVAd ap4: 36.4 cm2 SV(MOD-sp4): 53.5 ml LAV(MOD-bp) Indexed: 18.6 ml/m2 EDV(MOD-sp4): 132.3 ml LAV(MOD-sp2): 35.9 ml EDV(sp4-el): 140.3 ml LAV(MOD-sp4): 33.0 ml LVAs ap4: 26.2 cm2 ESV(MOD-sp4): 78.8 ml ESV(sp4-el): 82.2 ml EF(MOD-sp4): 40.5 % EF(sp4-el): 41.4 % SV(sp4-el): 58.0 ml LA A4 area: 14.0 cm2 LA dimension(2D): 4.1 cm RA A4 area: 10.7 cm2 Time Measurements MV dec time: 0.20 sec Doppler Measurements & Calculations MV E max melvin: 137.1 cm/sec Lat Peak E' Melvin: 8.3 cm/sec Med Peak E' Melvin: 6.6 cm/sec MV A max melvin: 82.2 cm/sec E/E' lat: 16.5 E/E' med: 20.9 MV E/A: 1.7 Ao V2 max: 135.9 cm/sec LV V1 max: 82.4 cm/sec PA V2 max: 95.4 cm/sec Ao max P.4 mmHg LV V1 max P.7 mmHg TR max melvin: 275.8 cm/sec TR max P.4 mmHg Interpretation Summary The study was technically difficult. Contrast injection was performed. Diluted definity 3ml given slow IV push to enhance endocardial definition. The estimated ejection fraction is 40-45 %. Stage 1 diastolic dysfunction. [place] : Hypokinetic. Anteroseptal Hypokinesis The study was technically difficult. Contrast injection was performed. Ordering Physician: Yesica Sharp Referring Physician: RAHUL HUBBARD Performed By: Luz Hermosillo RDCS
[2018-10-27 15:54] LABS: T4 Free Direct 0.91 ng/dL (0.76-1.46); Thyroid Stim Hormone (TSH) 0.58 uIU/mL (0.358-3.74)
--- NOTE | 2018-10-27 16:14 | EKG12_ITS ---
Test Reason : Blood Pressure : / mmHG Vent. Rate : 124 BPM Atrial Rate : 124 BPM P-R Int : 142 ms QRS Dur : 076 ms QT Int : 280 ms P-R-T Axes : 069 056 -16 degrees QTc Int : 402 ms Sinus tachycardia Nonspecific ST and T wave abnormality Abnormal ECG When compared with ECG of 26-OCT-2018 17:05, MANUAL COMPARISON REQUIRED, DATA IS UNCONFIRMED Confirmed by ENRIQUE NEAL, JOHNATHON ([id number]), book or script editor RM CAMARA ([id number]) on 11/01/2018 4:07:26 PM Referred By: YOCASTA Confirmed By:HOLDEN NUNEZ MD
[2018-10-27 16:41] LABS: Allen Test POS; Base Excess -2 mmol/L (-2 to +2); Bicarbonate 22.7 mmol/L (22-26); Blood Gas Specimen Type ART; O2 Delivery Device Nasal Can; PO2 69 mmHG (75-100); SITE R Radial; SO2 93 % (95-99); Time Given 1625; Total Carbon Dioxide 24 mmol/L; pCO2 38.3 mmHg (35-45); pH 7.38 (7.35-7.45)
[2018-10-27] MEDS: Ipratropium 0.5 MG/2.5 ML SOLUTION INHALATION ×3 (16:43→22:46)
[2018-10-27] MEDS: cloNIDine HCl 0.1 MG Tablet PO ×2 (19:02→21:14)
--- NOTE | 2018-10-27 19:04 | NURSING ---
In ICU 5 per bed from PCU. PCU RNs in attendance
[2018-10-27] MEDS: 0.9% Normal Saline 1,000 ML 30 ML IV (19:51)
[2018-10-27] MEDS: Pantoprazole Sodium 20 MG Tablet PO (21:13)
[2018-10-27] MEDS: traZODone 100 MG Tablet 200 MG PO (21:13)
[2018-10-27] MEDS: Gabapentin 300 MG Capsule 900 MG PO (21:13)
[2018-10-27] MEDS: Ceftriaxone 1 GM/50 ML BAG IV (22:17)
[2018-10-28] VITALS (26 sets, daily range): BP systolic 101–143; BP diastolic 57–85; PULSE 65–130; RESP 12–26; TEMP 36.3–36.8; O2SAT 90–98
[2018-10-28 04:29] LABS: Hematocrit 31.3 % (37-47); Hemoglobin 9.8 g/dL (12.0-15.0); Mean Corp Hgb Conc 31.3 g/dL (32-36); Mean Corpuscular Hgb 28.7 pg (27.0-32.0); Mean Corpuscular Volume 91.5 fL (81-99); Mean Platelet Vol. 10.7 fl (6.2-12.0); Platelet Count 153 K/mm3 (150-450); RBC Distribution Width CV 14.5 % (11.6-14.6); RBC Distribution Width SD 48.8 fl (35.1-43.9); Red Blood Count 3.42 M/mm3 (4.2-5.4); White Blood Count 7.1 K/mm3 (4.4-11.0)
[2018-10-28] MEDS: Acetaminophen 325 MG Tablet 650 MG PO (04:36)
[2018-10-28] MEDS: 0.9% NaCl Peripheral Flush Adult/Peds IV ×4 (04:38→22:42)
[2018-10-28 04:48] LABS: Anion Gap 7 (5-15); BUN 14 mg/dL (7-18); BUN/Creat Ratio 17.5 RATIO (10-20); Calcium,Total 8.1 mg/dL (8.5-10.1); Chloride 110 mmol/L (98-107); EST Glomerular Filtration Rate 79 mL/min (>60); Est Glom Filt Rate - Afr Amer 95 mL/min (>60); Estimated Creatinine Clearance 61.36 ml/min; Glucose 140 mg/dL (74-106); Magnesium 2.1 mg/dL (1.6-2.6); Potassium 4.4 mmol/L (3.5-5.1); Sodium Level 142 mmol/L (136-145)
[2018-10-28 04:59] LABS: Phosphorus 2.9 mg/dL (2.5-4.9)
--- NOTE | 2018-10-28 06:30 | CON.PCM_ITS ---
Reason for Consult Date of Consultation: 10/28/18 Reason for Consultation: Respiratory failure History of Present Illness: The patient is a 57-year-old female, with a history as outlined below, who initially presented to the emergency department on October 26 with complaints of shortness of breath and cough. The patient's medical history does include that for breast cancer and venous thromboembolic disease. The patient is a lifelong non-smoker, but does report having grown up in a smoking household. She does not utilize any inhalers at her baseline, as she has never been diagnosed with COPD or asthma. She normally, at her baseline, does not have any significant respiratory limitations. She denies ever having been diagnosed with any cardiac pathology in the past. She does report having been told that she audibly snores when she sleeps. In addition, she does report occasionally waking up in the middle the night gasping for air. She additionally reports the presence of nonrestorative sleep along with excessive daytime sleepiness. Nevertheless, the patient has never been formally evaluated for underlying sleep disordered breathing. On presentation to the emergency department, the patient was noted to be afebrile, tachycardic and tachypnea, but was hemodynamically stable. She was initially noted to be saturating 88% on room air. Initial laboratory evaluation revealed no evidence of a leukocytosis. There was evidence of normocytic anemia with a hemoglobin of 11 g/dL. INR was noted to be normal at 1.1. Chemistry profile revealed evidence of acute kidney injury with creatinine of 1.06. Serum lactate was within normal limits. Troponin was negative. Hepatic function profile was unremarkable. Urinalysis was unremarkable. A CTA chest was subsequently obtained which revealed no evidence for pulmonary embolism. There was, nevertheless, evidence of diffuse bilateral multilobar infiltrates. The patient was subsequently started on antibiotics and bronchodilators for suspected community-acquired pneumonia. The patient was initially admitted to the progressive care unit for further management. On the evening of October 27, the patient was noted by her hospitalist to have worsening in her respiratory status with tachypnea and pursed lip breathing. She was subsequently transferred to the medical intensive care unit for further management. No significant overnight events were noted by the nursing staff. While the patient's supplemental oxygen was initially increased to 5 L/min, over the course of the evening he was weaned down to 2 L/min. Past Medical History Past Medical History (Chronic Problems): Chronic Problems Depression (Chronic) Fibromyalgia (Chronic) History of breast cancer (Chronic) Status post left mastectomy. History of pulmonary embolus (PE) (Chronic) History of DVT of lower extremity (Chronic) Allergies tamoxifen Allergy (Verified 10/26/18 19:21) PE/DVT's Home Medications: Ambulatory Orders Medication Instructions Recorded Acetaminophen [Tylenol Extra 1,000 mg PO TID PRN PRN 10/26/18 Strength] Aspirin/Acetaminophen/Caffeine 2 tab PO DAILY PRN PRN 10/26/18 [Excedrin Extra Strength Caplet] Dextromethorphan Polistirex 10 ml PO Q4H PRN PRN 10/26/18 [Delsym] Escitalopram Oxalate 20 mg PO DAILY 10/26/18 Gabapentin [Neurontin] 300 mg PO BID 10/26/18 Gabapentin [Neurontin] 900 mg PO QHS 10/26/18 Ibuprofen 800 mg PO BID PRN PRN 10/26/18 Omeprazole [Prilosec] 20 mg PO QHS 10/26/18 Trazodone HCl 200 mg PO QHS 10/26/18 buPROPion XL [Wellbutrin Xl] 150 mg PO DAILY 10/26/18 Surgical History: mastectomy, - - Left breast reconstructive surgery. Psychiatric History: Depression [employer] History: No pertinent [employer] history Lives: Spouse/ Significant Other Smoking Status: Never smoker Alcohol: None Drugs: None - *Family History Maternal History Items: No pertinent history Paternal History Items: Cancer, COPD Sibling History Items: Heart Disease Review of Systems Constitutional: Reports: Malaise. Denies: Chills, Fever Eyes: Denies: Blurred vision, Double vision HEENT: Denies: Head Aches, Sinus Congestion, Sinus Drainage Cardiovascular: Denies: Chest Pain, Palpitations Respiratory: Reports: Cough, Shortness of Breath. Denies: Sputum production Gastrointestinal: Denies: Abdominal Pain, Nausea, Vomiting Genitourinary: Denies: Dysuria Musculoskeletal: Denies: Joint Pain, Joint Tenderness Skin: Denies: Rash, Wounds Neurological: Denies: Numbness, Tingling, Focal weakness Psychiatric: Reports: Anxiety, Depression Hematologic/ Lymphatic: Reports: Anemia, Hx of blood clot Patient Problems: Active and Suspected Problems Respiratory failure with hypoxia (Acute) Anemia, unspecified (Acute) Sinus tachycardia by electrocardiogram (Acute) Bilateral pneumonia (Acute) Objective: The patient's most recent lab work, culture data and imaging studies have all been personally reviewed. Strep and urine Legionella antigens were both negative. Respiratory viral panel was negative. Blood and urine cultures are pending. - Physical Exam General: Alert, Oriented x3, Cooperative, No apparent distress, - - Sitting upright in bed eating breakfast. HEENT: Atraumatic, PERRLA, Normocephalic Oral: No Gingival or Mucosal Lesions/ Ulcerations Neck: Supple, No Nodes, Trachea Midline Lungs: No rhonchi, No wheeze, No rales, Diminished Cardiovascular: Regular rate, Regular Rhythm, Normal S1, Normal S2, No murmurs Abdomen: Bowel Sounds Present, Soft, Non Tender, Obese Extremities: No clubbing, No cyanosis, No edema Skin: No breakdown Musculoskeletal: No Tenderness to Palpation of Joints or Extremities, No Muscle Wasting Lymphatic: No Cervical, Supraclavicular, or Inguinal Adenopathy Neurological: Cranial nerves II-XII grossly intact, Neuro grossly intact Psych/Mental Status: Alert and oriented to time, place, person, mood and affect Vital Signs Temp Pulse Resp BP Pulse Ox 98.1 F 67 18 113/74 93 10/28/18 04:00 10/28/18 06:00 10/28/18 06:00 10/28/18 06:00 10/28/18 06:00 Oxygen Flow Rate (L/min) 2 Oxygen Delivery Method Nasal Cannula Weight: 199 lb 8.293 oz Body Mass Index (BMI) 36.1 Intake and Output for Last 24 Hours 10/26/18 10/27/18 10/28/18 23:59 23:59 23:59 Intake Total 2170 / 2170 2743.83 / 3043.83 651.0 / 651.0 Output Total 550 / 550 Balance 2170 / 2170 2743.83 / 2643.83 101.0 / 101.0 Microbiology Past 72 Hours 10/27/18 Unknown Respiratory Panel (PCR) - Final Mucosa - Nose 10/26/18 20:20 Streptococcus pneumoniae Antigen (M - Final Urine, Clean Catch 10/26/18 20:20 Legionella Antigen - Final Urine, Clean Catch Laboratory Tests Past 24 Hrs 10/27/18 10/27/18 10/28/18 05:15 16:37 04:20 WBC 7.1 RBC 3.42 L Hgb 9.8 L Hct 31.3 L MCV 91.5 MCH 28.7 MCHC 31.3 L RDW Std Deviation 48.8 H RDW Coeff of Rhys 14.5 Plt Count 153 MPV 10.7 Specimen Type ART Sample Site R Radial pH 7.38 Bicarbonate Actual 22.7 POC Total CO2 24 Base Excess -2 O2 Saturation 93 L ABG pCO2 38.3 ABG pO2 69 L Von Test POS O2 Delivery Device Nasal Can Liter Flow 3.0 Blood Gas Notified Whom [facility] Blood Gas Notified Time 1625 Sodium Potassium Chloride Carbon Dioxide Anion Gap BUN Creatinine Estim Creat Clear Calc Est GFR (MDRD) Af Amer Est GFR (MDRD) Non-Af BUN/Creatinine Ratio Glucose Calcium Phosphorus Magnesium TSH 0.58 Free T4 0.91 10/28/18 10/28/18 04:20 04:20 WBC RBC Hgb Hct MCV MCH MCHC RDW Std Deviation RDW Coeff of Rhys Plt Count MPV Specimen Type Sample Site pH Bicarbonate Actual POC Total CO2 Base Excess O2 Saturation ABG pCO2 ABG pO2 Von Test O2 Delivery Device Liter Flow Blood Gas Notified Whom Blood Gas Notified Time Sodium 142 Potassium 4.4 Chloride 110 H Carbon Dioxide 25.0 Anion Gap 7 BUN 14 Creatinine 0.80 Estim Creat Clear Calc 61.36 Est GFR (MDRD) Af Amer 95 Est GFR (MDRD) Non-Af 79 BUN/Creatinine Ratio 17.5 Glucose 140 H Calcium 8.1 L Phosphorus 2.9 Magnesium 2.1 TSH Free T4 Clinical Impression(s) from Imaging Studies Chest X-Ray 10/26/18 17:15 IMPRESSION: Scattered patchy bilateral infiltrates. Degenerative changes of the thoracic spine. Electronically Signed: Jono Ruth MD at 17:26 EDT , Service support , Chest CTA 10/27/18 15:04 IMPRESSION: Small bilateral pleural effusions with bilateral pulmonary infiltrates. No evidence of pulmonary embolism. Electronically Signed: Gene Herron, at 15:51 EDT , Service support , Assessment/Plan Active and Suspected Problems Respiratory failure with hypoxia (Acute) Anemia, unspecified (Acute) Sinus tachycardia by electrocardiogram (Acute) Bilateral pneumonia (Acute) RECOMMENDATIONS: 1. Continue antibiotics, bronchodilators and steroids. Methylprednisone can likely be transitioned to prednisone at this time. 2. Wean supplemental oxygen to maintain saturations at or above 90%. 3. Awaiting echocardiogram. Check BNP. 4. Encourage incentive spirometer use and mobilize patient as tolerated. IMPRESSIONS: 1. Acute hypoxemic respiratory insufficiency The patient presented to the hospital with complaints of shortness of breath and cough along with recent radiographic evidence of multi focal pneumonia. Her oxygenation status has improved over the course of the evening. We will plan to continue current supportive measures including antibiotics and bronchodilators. IV steroids can likely be transitioned to prednisone at this time. Wean supplemental oxygen to maintain saturations at or above 90%. Encourage incentive spirometer use and mobilize patient as tolerated. Echocardiogram is currently pending. Check BNP as well. 2. History of venous thromboembolic disease/obesity/anemia/fibromyalgia/history of breast cancer status post mastectomy Complicates care, management, recovery and prognosis. Okay to continue home medications. CTA revealed no evidence for pulmonary embolism. This note was generated with [employer] dictation software. It may contain incorrect words, spelling, and punctuation that were not noted in checking the note before signing. Code Visit Inpatient E&M: 28830 Init Hosp L3
[2018-10-28] MEDS: Ipratropium 0.5 MG/2.5 ML SOLUTION INHALATION ×4 (06:43→23:08)
[2018-10-28] MEDS: Gabapentin 300 MG Capsule PO ×2 (08:20→17:14)
--- NOTE | 2018-10-28 09:27 | PN_ITS ---
Patient Problems: Active and Suspected Problems Respiratory failure with hypoxia (Acute) Anemia, unspecified (Acute) Sinus tachycardia by electrocardiogram (Acute) Bilateral pneumonia (Acute) Subjective: All events of the past 24 H have been reviewed. She is better today and when she is at rest the HR is well controlled but the HR increases and so does the SOB with even minimal exertion. Continues to have a non-productive cough. Denies CP. All lab and cultures were personally reviewed. BNP is increased to 526. Interpretation Summary The study was technically difficult. Contrast injection was performed. Diluted definity 3ml given slow IV push to enhance endocardial definition. The estimated ejection fraction is 40-45 %. Stage 1 diastolic dysfunction. [place] : Hypokinetic. Anteroseptal Hypokinesis The study was technically difficult. Contrast injection was performed. - Physical Exam General: Alert, Oriented x3, Cooperative, - - gets tachypneic and tachycardic when going from the bed to the chair and with even minimal exertion HEENT: Atraumatic Oral: Moist Mucosa Neck: Supple, No Nodes, Trachea Midline Lungs: - - better air exchange today. No conversational dyspnea, occasional wheeze today. no accessory muscle use. No pursed lip breathing, no rales Cardiovascular: Regular Rhythm, Normal S1, Normal S2, No murmurs, No rub noted, No Gallop, Tachycardic Abdomen: Bowel Sounds Present, Soft, Non Tender, Non-Distended Extremities: No cyanosis, No edema Skin: No rashes Neurological: Cranial nerves II-XII grossly intact, Neuro grossly intact, Motor Exam 5/5 strength throughout Psych/Mental Status: Normal Affect, Appropriate Vital Signs Temp Pulse Resp BP Pulse Ox 98.1 F 103 H 19 H 120/68 93 10/28/18 04:00 10/28/18 08:00 10/28/18 08:00 10/28/18 08:00 10/28/18 08:00 Oxygen Flow Rate (L/min) 2 Oxygen Delivery Method Nasal Cannula Weight: 199 lb 8.293 oz Body Mass Index (BMI) 36.1 Intake and Output for Last 24 Hours 10/26/18 10/27/18 10/28/18 23:59 23:59 23:59 Intake Total 2170 / 2170 2743.83 / 3043.83 758.0 / 758.0 Output Total 550 / 550 Balance 2170 / 2170 2743.83 / 2643.83 208.0 / 208.0 Microbiology Past 72 Hours 10/27/18 Unknown Respiratory Panel (PCR) - Final Mucosa - Nose 10/26/18 20:20 Streptococcus pneumoniae Antigen (M - Final Urine, Clean Catch 10/26/18 20:20 Legionella Antigen - Final Urine, Clean Catch Laboratory Tests Past 24 Hrs 10/27/18 10/27/18 10/28/18 05:15 16:37 04:20 WBC 7.1 RBC 3.42 L Hgb 9.8 L Hct 31.3 L MCV 91.5 MCH 28.7 MCHC 31.3 L RDW Std Deviation 48.8 H RDW Coeff of Rhys 14.5 Plt Count 153 MPV 10.7 Specimen Type ART Sample Site R Radial pH 7.38 Bicarbonate Actual 22.7 POC Total CO2 24 Base Excess -2 O2 Saturation 93 L ABG pCO2 38.3 ABG pO2 69 L Von Test POS O2 Delivery Device Nasal Can Liter Flow 3.0 Blood Gas Notified Whom [facility] Blood Gas Notified Time 1625 Sodium Potassium Chloride Carbon Dioxide Anion Gap BUN Creatinine Estim Creat Clear Calc Est GFR (MDRD) Af Amer Est GFR (MDRD) Non-Af BUN/Creatinine Ratio Glucose Calcium Phosphorus Magnesium B-Natriuretic Peptide TSH 0.58 Free T4 0.91 10/28/18 10/28/18 10/28/18 04:20 04:20 04:28 WBC RBC Hgb Hct MCV MCH MCHC RDW Std Deviation RDW Coeff of Rhys Plt Count MPV Specimen Type Sample Site pH Bicarbonate Actual POC Total CO2 Base Excess O2 Saturation ABG pCO2 ABG pO2 Von Test O2 Delivery Device Liter Flow Blood Gas Notified Whom Blood Gas Notified Time Sodium 142 Potassium 4.4 Chloride 110 H Carbon Dioxide 25.0 Anion Gap 7 BUN 14 Creatinine 0.80 Estim Creat Clear Calc 61.36 Est GFR (MDRD) Af Amer 95 Est GFR (MDRD) Non-Af 79 BUN/Creatinine Ratio 17.5 Glucose 140 H Calcium 8.1 L Phosphorus 2.9 Magnesium 2.1 B-Natriuretic Peptide Pending TSH Free T4 Medical Necessity - Tobacco Use Smoking Status: Never smoker Assessment/Plan All Active Problems Respiratory failure with hypoxia (Acute) Anemia, unspecified (Acute) Sinus tachycardia by electrocardiogram (Acute) Bilateral pneumonia (Acute) Day #2 Rocephin and azithromycin Impressions 1. CAP with multilobar infiltrates and a non-productive cough. Respiratory panel negative. Legionella and streptococcal antigens are negative. Continue Rocephin and azithromycin. Continue incentive spirometry and PEP. Continue aerosolized bronchodilators. Start steroids for the diminished BS's, poor air exchange and the wheezing. 2. 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 VTE was thought to be due to Tamoxifen and she has not been anticoagulated because the Tamoxifen was discontinued. She has been sick for a week and lying around. Has not seen an oncologist an PCP is doing surveillance for recurrent breast CA. With the ST and increased dyspnea past few days I am concerned about possible PE and am ordering a CTA of the chest. Also ordering TSH and T4 since her dtr has been diagnosed with possible Samuel's thyroiditis. If the TSH is normal and the CTA is negative will DC the Duoneb and Albuterol and start Atrovent aerosols. 3. hx of breast CA - mastectomy in 2013. 4. Fibromyalgia- gabapentin and ibuprofen continued 5. Obesity 6. Acute respiratory insufficiency with hypoxia 7. Normochromic normocytic anemia with an increased RDW 8. sleep disordered breathing - continue BIPAP while sleeping 9. CM with a 40-45% EF and segmental wall motion abnormalities - suspicious for CAD/remote [place]......will need to be evaluated for CAD going forward. Limit overloading with fluids. Check a BNP Transfer to PCU Needs OP PFT's and sleep study - will follow up with Dr. Hernandez as an OP BNP was 525 - Lasix 40 mg IV now. HL IV fluids Low salt diet. Start Coreg and DC the clonidine. Start Lisinopril 2.5 daily in the AM. Cardiology consult in the AM. ASA 81 mg daily. Lipid panel in the AM Code Visit Inpatient E&M: 06431 [facility] Hosp L3
[2018-10-28 09:45] LABS: BNP,B-Type NATRIURETIC PEPTIDE 525.6 pg/mL (0-100)
[2018-10-28] MEDS: Ibuprofen 400 MG Tablet 800 MG PO ×2 (09:58→22:42)
[2018-10-28] MEDS: Escitalopram Oxalate 20 MG Tablet PO (09:59)
[2018-10-28] MEDS: Enoxaparin 40 MG/0.4 ML Syringe SC (09:59)
[2018-10-28] MEDS: cloNIDine HCl 0.1 MG Tablet PO (09:59)
[2018-10-28] MEDS: buPROPion (XL) 150 MG TABLET.XL PO (09:59)
[2018-10-28] MEDS: guaiFENesin 1,200 MG Tablet 1200 MG PO ×2 (09:59→22:40)
[2018-10-28] MEDS: Furosemide 40 MG/4 ML Vial IV (20:55)
[2018-10-28] MEDS: Aspirin 81 MG TAB.CHEW PO (20:55)
[2018-10-28] MEDS: Carvedilol 3.125 MG TABLET PO (22:39)
[2018-10-28] MEDS: traZODone 100 MG Tablet 200 MG PO (22:39)
[2018-10-28] MEDS: Gabapentin 300 MG Capsule 900 MG PO (22:40)
[2018-10-28] MEDS: Pantoprazole Sodium 20 MG Tablet PO (22:41)
[2018-10-28] MEDS: Ceftriaxone 1 GM/50 ML BAG IV (22:41)
[2018-10-29] VITALS (22 sets, daily range): BP systolic 115–175; BP diastolic 66–97; PULSE 68–114; RESP 12–18; TEMP 36.6–36.9; O2SAT 93–99
[2018-10-29 03:26] LABS: Anion Gap 8 (5-15); BUN 28 mg/dL (7-18); BUN/Creat Ratio 25.5 RATIO (10-20); Calcium,Total 8.5 mg/dL (8.5-10.1); Chloride 108 mmol/L (98-107); Cholesterol 158 mg/dL (200); EST Glomerular Filtration Rate 54 mL/min (>60); Est Glom Filt Rate - Afr Amer 66 mL/min (>60); Estimated Creatinine Clearance 44.63 ml/min; Glucose 145 mg/dL (74-106); High Density Lipoprotein 40 mg/dL; Magnesium 2.3 mg/dL (1.6-2.6); Phosphorus 3.7 mg/dL (2.5-4.9); Sodium Level 141 mmol/L (136-145); Triglycerides 115 mg/dL; Very Low Density Lipoprotein 23 mg/dL (5-40)
--- NOTE | 2018-10-29 05:55 | EKG12_ITS ---
Test Reason : AM EKG Blood Pressure : / mmHG Vent. Rate : 079 BPM Atrial Rate : 079 BPM P-R Int : 128 ms QRS Dur : 090 ms QT Int : 462 ms P-R-T Axes : 034 043 260 degrees QTc Int : 529 ms Normal sinus rhythm T wave abnormality, consider anterolateral ischemia Prolonged QT Abnormal ECG When compared with ECG of 27-OCT-2018 16:27, MANUAL COMPARISON REQUIRED, DATA IS UNCONFIRMED Confirmed by ENRIQUE NEAL, JOHNATHON ([id number]), business editor RM CAMARA ([id number]) on 11/01/2018 4:11:13 PM Referred By: DR CLOUD Confirmed By:HOLDEN NUNEZ MD
[2018-10-29] MEDS: 0.9% NaCl Peripheral Flush Adult/Peds IV ×2 (06:38→13:39)
[2018-10-29] MEDS: Ipratropium 0.5 MG/2.5 ML SOLUTION INHALATION ×4 (06:45→22:51)
--- NOTE | 2018-10-29 06:54 | CON.PCM_ITS ---
Reason for Consult Date of Consultation: 10/29/18 Reason for Consultation: Shortness of breath History of Present Illness: The patient is a 57 year old F who initially presented to the emergency department on October 26 with complaints of shortness of breath and cough. The patient's medical history does include that for breast cancer and venous thromboembolic disease. She denies ever having been diagnosed with any cardiac pathology in the past. She does report having been told that she audibly snores when she sleeps. In addition, she does report occasionally waking up in the middle the night gasping for air. She additionally reports the presence of nonrestorative sleep along with excessive daytime sleepiness. Nevertheless, the patient has never been formally evaluated for underlying sleep disordered breathing. On presentation to the emergency department, the patient was noted to be afebrile, tachycardic and tachypnea, but was hemodynamically stable. She was initially noted to be saturating 88% on room air. Initial laboratory evaluation revealed no evidence of a leukocytosis. There was evidence of normocytic anemia with a hemoglobin of 11 g/dL. INR was noted to be normal at 1.1. Chemistry profile revealed evidence of acute kidney injury with creatinine of 1.06. Serum lactate was within normal limits. Troponin was negative. Hepatic function profile was unremarkable. Urinalysis was unremarkable. A CTA chest was subsequently obtained which revealed no evidence for pulmonary embolism. There was, nevertheless, evidence of diffuse bilateral multilobar infiltrates. The patient was subsequently started on antibiotics and bronchodilators for suspected community-acquired pneumonia. The patient was initially admitted to the progressive care unit for further management. On the evening of October 27, the patient was noted by her hospitalist to have worsening in her respiratory status with tachypnea and pursed lip breathing. She was subsequently transferred to the medical intensive care unit for further management. No significant overnight events were noted by the nursing staff. While the patient's supplemental oxygen was initially increased to 5 L/min, over the course of the evening he was weaned down to 2 L/min. She was transferred back down to the progressive care unit she is been doing well. An echocardiogram was performed which demonstrated evidence of anteroseptal hypokinesis. Natruretic peptide levels were noted to be elevated to over 500. She is denied any chest pain. This morning her EKG demonstrates anterior T wave inversions. Cardiology was asked to see her last night. Past Medical History Allergies/Adverse Reactions: Allergies tamoxifen Allergy (Verified 10/26/18 19:21) PE/DVT's Home Medications: Ambulatory Orders Medication Instructions Recorded Acetaminophen [Tylenol Extra 1,000 mg PO TID PRN PRN 10/26/18 Strength] Aspirin/Acetaminophen/Caffeine 2 tab PO DAILY PRN PRN 10/26/18 [Excedrin Extra Strength Caplet] Dextromethorphan Polistirex 10 ml PO Q4H PRN PRN 10/26/18 [Delsym] Escitalopram Oxalate 20 mg PO DAILY 10/26/18 Gabapentin [Neurontin] 300 mg PO BID 10/26/18 Gabapentin [Neurontin] 900 mg PO QHS 10/26/18 Ibuprofen 800 mg PO BID PRN PRN 10/26/18 Omeprazole [Prilosec] 20 mg PO QHS 10/26/18 Trazodone HCl 200 mg PO QHS 10/26/18 buPROPion XL [Wellbutrin Xl] 150 mg PO DAILY 10/26/18 Past Medical History (Chronic Problems): Chronic Problems Depression (Chronic) Fibromyalgia (Chronic) History of breast cancer (Chronic) Status post left mastectomy. History of pulmonary embolus (PE) (Chronic) History of DVT of lower extremity (Chronic) Surgical History: mastectomy, - - Left breast reconstructive surgery. Psychiatric History: Depression [employer]ENT History: No pertinent [employer] history - *Family History Maternal History Items: No pertinent history Paternal History Items: Cancer, COPD Sibling History Items: Heart Disease Lives: Spouse/ Significant Other Smoking Status: Never smoker Alcohol: None Drugs: None Review of Systems - Review of Systems General: Denies: Fever, Night Sweats, Fatigue HEENT: Denies: Vision Change Cardiovascular: Reports: Shortness of Breath, Shortness of Breath at Rest. Denies: Chest Discomfort, Orthopnea, PND, Peripheral Edema, Palpitations, Lightheadedness, Dizziness, Near Syncope, Syncope Respiratory: Denies: Cough, Sputum Production, Hemoptysis Gastrointestinal: Denies: Hematemesis, Hematochezia, Melena Genitourinary: Denies: Dysuria, Hematuria Muscoloskeletal: Reports: Myalgias Skin: Denies: Rash Neurological: Denies: Dizziness Psychiatric: Denies: Anxiety Endocrine: Denies: Heat Intolerance Hematologic/ Lymphatic: Reports: Anemia Subjectve: Pleasant lady in no distress at this time Objective: Vital Signs Temp Pulse Resp BP Pulse Ox 97.9 F 87 18 126/83 H 95 10/29/18 04:30 10/29/18 04:30 10/29/18 04:30 10/29/18 04:30 10/29/18 04:30 Oxygen Flow Rate (L/min) 2 Oxygen Delivery Method Nasal Cannula Weight: 202 lb 2.622 oz Body Mass Index (BMI) 36.1 Intake and Output for Last 24 Hours 10/27/18 10/28/18 10/29/18 23:59 23:59 23:59 Intake Total 2743.83 / 3043.83 1617.5 / 1617.5 Output Total 1351 / 1351 Balance 2743.83 / 2643.83 266.5 / 266.5 General: Awake, Alert, Oriented x 3 HEENT: PERRL, EOMI, Sclera Non Icteric Neck: Supple, Good ROM, No Lymph Node Enlargement Lungs: Clear to auscultation Cardiovascular: Regular Rhythm, Normal S1, Normal S2, No Murmurs, No Rubs, No Gallops Vascular: No Carotid Bruits, Normal Femoral Pulses, Normal Radial Pulses, Normal Dorsalis Pedal Pulse, Normal Posterior Tibial Pulses Abdomen: Bowel Sounds Present, Soft, Non Tender, No HSM, No Organomegaly Extremities: No Cyanosis, No Clubbing, No edema Musculoskeletal: No Erythema Skin: No Rashes Lymphatic: No Lymph Node Enlargement Neurological: No Focal Motor or Sensory Deficit Psych/Mental Status: Appropriate 10/28/18 04:28: B-Natriuretic Peptide 525.6 H 10/28/18 21:28: Troponin I < 0.015 10/28/18 23:57: Troponin I < 0.015 10/29/18 02:56: Sodium 141, Potassium 4.0, Chloride 108 H, Carbon Dioxide 25.0, Anion Gap 8, BUN 28 H, Creatinine 1.10 H, Est GFR (MDRD) Af Amer 66, Est GFR (MDRD) Non-Af 54 L, BUN/Creatinine Ratio 25.5 H, Glucose 145 H, Calcium 8.5, Phosphorus 3.7, Magnesium 2.3, Triglycerides 115, Cholesterol 158, LDL Cholesterol 95, VLDL Cholesterol 23, HDL Cholesterol 40 10/29/18 02:56: Troponin I 0.016 Rhythm: EKG: Sinus rhythm on admission with a rate of 124 bpm. Electric cardiogram this morning demonstrates sinus rhythm with a rate of 79 bpm with T wave inversions. ECHO: Estimated ejection fraction of 40 to 45% with anterior septal hypokinesis. Assessment/Plan 1. Congestive heart failure-acute systolic * I suspect her initial presentation was secondary to congestive heart failure. Even though her troponin was not elevated she does have EKG changes and she responded to treatment with diuretics and also has an abnormal echocardiogram. * My recommendation at this time will be for us to exclude obstructive coronary disease with a cardiac catheterization. The risk benefits alternatives have been explained to her she understands and agrees to proceed. After the above is performed further recommendations will be made. * * Thank you for allowing me to participate in the care of your patient. Please don't hesitate to call if any issues arise * Addendum: Cardiac catheterization demonstrated normal coronary arteries. Elevated left ventricular end-diastolic pressure. Mild cardiomyopathy present. Would recommend aggressive medical therapy, and diuresis, JACQUELINE inhibitors and bet a-blockers.
[2018-10-29] MEDS: Carvedilol 3.125 MG TABLET PO (07:46)
[2018-10-29] MEDS: Lisinopril 2.5 MG Tablet PO (07:46)
[2018-10-29] MEDS: Aspirin 81 MG TAB.CHEW PO (07:46)
--- NOTE | 2018-10-29 09:30 | CASEMGMT ---
According to the [facility] website, the following are in-network tertiary facilities: [facility], [place], [facility], [place], [facility], [facility], [place], [facility], and . Estefania JIMENES CM
--- NOTE | 2018-10-29 12:30 | PN_ITS ---
Patient Problems: Active and Suspected Problems Respiratory failure with hypoxia (Acute) Anemia, unspecified (Acute) Sinus tachycardia by electrocardiogram (Acute) Bilateral pneumonia (Acute) Subjective: The patient was seen and examined at the bedside this morning. Events from the last 24 hours have been reviewed. The patient is currently afebrile, hemodynamically stable and maintaining appropriate oxygen saturations on 2 L/min via nasal cannula. The patient is done well from a respiratory perspective following transfer out of the intensive care unit yesterday. The patient's echocardiogram completed yesterday revealed a depressed ejection fraction with wall motion abnormality. Therefore, there are plans for cardiology to perform a catheterization today. Objective: The patient's most recent lab work, culture data and imaging studies have all been personally reviewed. CTA chest revealed no evidence for pulmonary embolism. There was, nevertheless, evidence of diffuse bilateral multilobar infiltrates. Surface echocardiogram revealed normal LV size with an ejection fraction of 40 to 45% and stage I diastolic dysfunction. Infectious work-up has been largely unrevealing to date. - Physical Exam General: Alert, Cooperative, No apparent distress HEENT: Atraumatic, PERRLA, Normocephalic Neck: Supple, No Nodes, Trachea Midline Lungs: No rhonchi, No wheeze, Diminished, Rales Cardiovascular: Regular rate, Regular Rhythm, Normal S1, Normal S2, No murmurs Abdomen: Bowel Sounds Present, Soft, Non Tender, Obese Extremities: No clubbing, No cyanosis, Edema Skin: No breakdown Musculoskeletal: No Tenderness to Palpation of Joints or Extremities, No Muscle Wasting Lymphatic: No Cervical, Supraclavicular, or Inguinal Adenopathy Neurological: Cranial nerves II-XII grossly intact, Neuro grossly intact Psych/Mental Status: Normal Affect, Appropriate Vital Signs Temp Pulse Resp BP Pulse Ox 98.3 F 79 16 115/66 96 10/29/18 09:23 10/29/18 10:59 10/29/18 10:59 10/29/18 09:23 10/29/18 09:23 Oxygen Flow Rate (L/min) 2 Oxygen Delivery Method Nasal Cannula Weight: 202 lb 2.622 oz Body Mass Index (BMI) 36.1 Intake and Output for Last 24 Hours 10/27/18 10/28/18 10/29/18 23:59 23:59 23:59 Intake Total 2743.83 / 3043.83 1617.5 / 1617.5 480 / 480 Output Total 1351 / 1351 Balance 2743.83 / 2643.83 266.5 / 266.5 480 / 480 Microbiology Past 72 Hours 10/26/18 20:20 Urine Culture - Final Urine, Clean Catch Mixed Gram Positive Organisms 10/27/18 Unknown Respiratory Panel (PCR) - Final Mucosa - Nose 10/26/18 20:20 Streptococcus pneumoniae Antigen (M - Final Urine, Clean Catch 10/26/18 20:20 Legionella Antigen - Final Urine, Clean Catch Laboratory Tests Past 24 Hrs 10/28/18 10/28/18 10/29/18 21:28 23:57 02:56 Sodium 141 Potassium 4.0 Chloride 108 H Carbon Dioxide 25.0 Anion Gap 8 BUN 28 H Creatinine 1.10 H Estim Creat Clear Calc 44.63 Est GFR (MDRD) Af Amer 66 Est GFR (MDRD) Non-Af 54 L BUN/Creatinine Ratio 25.5 H Glucose 145 H Calcium 8.5 Phosphorus 3.7 Magnesium 2.3 Troponin I < 0.015 < 0.015 Triglycerides 115 Cholesterol 158 LDL Cholesterol 95 VLDL Cholesterol 23 HDL Cholesterol 40 10/29/18 02:56 Sodium Potassium Chloride Carbon Dioxide Anion Gap BUN Creatinine Estim Creat Clear Calc Est GFR (MDRD) Af Amer Est GFR (MDRD) Non-Af BUN/Creatinine Ratio Glucose Calcium Phosphorus Magnesium Troponin I 0.016 Triglycerides Cholesterol LDL Cholesterol VLDL Cholesterol HDL Cholesterol Clinical Impression(s) from Imaging Studies Chest X-Ray 10/26/18 17:15 IMPRESSION: Scattered patchy bilateral infiltrates. Degenerative changes of the thoracic spine. Electronically Signed: Jono Ruth MD at 17:26 EDT , Service support , Chest CTA 10/27/18 15:04 IMPRESSION: Small bilateral pleural effusions with bilateral pulmonary infiltrates. No evidence of pulmonary embolism. Electronically Signed: Gene Herron, at 15:51 EDT , Service support , Medical Necessity - Tobacco Use Smoking Status: Never smoker Assessment/Plan All Active Problems Respiratory failure with hypoxia (Acute) Anemia, unspecified (Acute) Sinus tachycardia by electrocardiogram (Acute) Bilateral pneumonia (Acute) RECOMMENDATIONS: 1. Continue antibiotics, bronchodilators and steroids. Methylprednisone can likely be transitioned to prednisone at this time. 2. I would plan to complete a 7-day treatment course of antibiotics. 3. Continue to wean supplemental oxygen to maintain saturations at or above 90%. 4. Encourage incentive spirometer use and mobilize patient as tolerated. 5. Await results of cardiac catheterization. IMPRESSIONS: 1. Acute hypoxemic respiratory insufficiency The patient presented to the hospital with complaints of shortness of breath and cough along with recent radiographic evidence of multi focal pneumonia. Her oxygenation status has improved. We will plan to continue current supportive measures including antibiotics and bronchodilators. IV steroids can likely be transitioned to prednisone at this time. Wean supplemental oxygen to maintain saturations at or above 90%. Encourage incentive spirometer use and mobilize patient as tolerated. 2. Newly identified systolic heart failure Plans for cardiac catheterization today. Defer medical management to cardiology. 3. History of venous thromboembolic disease/obesity/anemia/fibromyalgia/history of breast cancer status post mastectomy Complicates care, management, recovery and prognosis. Okay to continue home medications. CTA revealed no evidence for pulmonary embolism. This note was generated with [employer] dictation software. It may contain incorrect words, spelling, and punctuation that were not noted in checking the note before signing. Code Visit Inpatient E&M: 97605 Subs Hosp L2
[2018-10-29] MEDS: Azithromycin 250 MG Tablet 500 MG PO (13:38)
[2018-10-29] MEDS: buPROPion (XL) 150 MG TABLET.XL PO (13:38)
[2018-10-29] MEDS: Escitalopram Oxalate 20 MG Tablet PO (13:38)
[2018-10-29] MEDS: Gabapentin 300 MG Capsule PO (13:38)
--- NOTE | 2018-10-29 14:05 | PN_ITS ---
Patient Problems: Active and Suspected Problems Respiratory failure with hypoxia (Acute) Anemia, unspecified (Acute) Sinus tachycardia by electrocardiogram (Acute) Bilateral pneumonia (Acute) Subjective: Day #4 Rocephin, completed 3 days of azithromycin All events of the past 24 hours of been reviewed. She was taken for cardiac catheterization by Dr. Solorzano today due to a 40-45% EF with wall motion abnormalities and she has no significant CAD. It does not appear to be Takutsubo's.....he feels this may be due to one of the chemotherapy medications she received for breast CA. Blood pressures were elevated while she was in the [employer]. She is maintaining an oxygen saturation of 90% on a 2 L nasal cannula at rest. All lab was personally reviewed. With diuresis the BUN is increased to 28 and the creatinine is now 1.10, up from 0.8 on 10/28/2018. LDL is 95 and the HDL is 40. - Physical Exam General: Alert, Oriented x3, Cooperative, No apparent distress, - - Sitting in the recliner at the bedside. Oral: Moist Mucosa, No Gingival or Mucosal Lesions/ Ulcerations Neck: Supple, No Nodes, Trachea Midline Lungs: - - better air exchange, rales in the bases R>L, rare wheeze today. No conversational dyspnea today, no accessory muscle use, not tachypneic at rest Cardiovascular: Regular rate, Regular Rhythm, Normal S1, Normal S2, No murmurs, No Gallop Abdomen: Bowel Sounds Present, Soft, Non Tender, Non-Distended Extremities: No clubbing, No cyanosis, Edema - trace pretibial edema Skin: No rashes Neurological: - - No focal neurologic deficits Psych/Mental Status: Normal Affect, Appropriate Vital Signs Temp Pulse Resp BP Pulse Ox 98.3 F 69 18 163/76 H 95 10/29/18 09:23 10/29/18 13:30 10/29/18 13:30 10/29/18 13:30 10/29/18 13:30 Oxygen Flow Rate (L/min) 2 Oxygen Delivery Method Nasal Cannula Weight: 202 lb 2.622 oz Body Mass Index (BMI) 36.1 Intake and Output for Last 24 Hours 10/27/18 10/28/18 10/29/18 23:59 23:59 23:59 Intake Total 2743.83 / 3043.83 1617.5 / 1617.5 480 / 480 Output Total 1351 / 1351 Balance 2743.83 / 2643.83 266.5 / 266.5 480 / 480 Microbiology Past 72 Hours 10/26/18 18:00 Blood Culture - Preliminary Blood Culture (Wb) - Right Hand No growth in 48 hours. 10/26/18 17:00 Blood Culture - Preliminary Blood Culture (Wb) - Anticubital Right No growth in 48 hours. 10/26/18 20:20 Urine Culture - Final Urine, Clean Catch Mixed Gram Positive Organisms 10/27/18 Unknown Respiratory Panel (PCR) - Final Mucosa - Nose 10/26/18 20:20 Streptococcus pneumoniae Antigen (M - Final Urine, Clean Catch 10/26/18 20:20 Legionella Antigen - Final Urine, Clean Catch Laboratory Tests Past 24 Hrs 10/28/18 10/28/18 10/29/18 21:28 23:57 02:56 Sodium 141 Potassium 4.0 Chloride 108 H Carbon Dioxide 25.0 Anion Gap 8 BUN 28 H Creatinine 1.10 H Estim Creat Clear Calc 44.63 Est GFR (MDRD) Af Amer 66 Est GFR (MDRD) Non-Af 54 L BUN/Creatinine Ratio 25.5 H Glucose 145 H Calcium 8.5 Phosphorus 3.7 Magnesium 2.3 Troponin I < 0.015 < 0.015 Triglycerides 115 Cholesterol 158 LDL Cholesterol 95 VLDL Cholesterol 23 HDL Cholesterol 40 10/29/18 02:56 Sodium Potassium Chloride Carbon Dioxide Anion Gap BUN Creatinine Estim Creat Clear Calc Est GFR (MDRD) Af Amer Est GFR (MDRD) Non-Af BUN/Creatinine Ratio Glucose Calcium Phosphorus Magnesium Troponin I 0.016 Triglycerides Cholesterol LDL Cholesterol VLDL Cholesterol HDL Cholesterol Medical Necessity - Tobacco Use Smoking Status: Never smoker Assessment/Plan All Active Problems Respiratory failure with hypoxia (Acute) Anemia, unspecified (Acute) Sinus tachycardia by electrocardiogram (Acute) Bilateral pneumonia (Acute) Day #3 Rocephin and azithromycin Impressions 1. CAP with multilobar infiltrates and a non-productive cough. Respiratory panel negative. Legionella and streptococcal antigens are negative. Continue Rocephin and azithromycin. Continue incentive spirometry and PEP. Continue aerosolized bronchodilators. Transition to prednisone. 2. 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 VTE was thought to be due to Tamoxifen and she has not been anticoagulated because the Tamoxifen was discontinued. CTA of the chest was negative for PE 3. hx of breast CA - mastectomy in 2013. Not currently following up with an oncologist 4. Fibromyalgia- gabapentin and ibuprofen continued 5. Obesity 6. Acute respiratory insufficiency with hypoxia - needs and ambulatory pulse ox on RA prior to DC 7. Normochromic normocytic anemia with an increased RDW 8. sleep disordered breathing - continue BIPAP while sleeping 9. CM with a 40-45% EF and segmental wall motion abnormalities - Cath negative for significant CAD. 10. acute systolic CHF - Lasix 40 mg BID. Increase the Coreg to 6.25 mg BID. Recheck lab in the AM. Low salt diet.
[2018-10-29] MEDS: Furosemide 40 MG Tablet PO ×2 (14:31→17:14)
--- NOTE | 2018-10-29 14:37 | CASEMGMT ---
Pt provided list of in-network DME companies at this time in case she may need home oxygen at discharge and pt states would like [employer] at this time. Green sheet left on chart at this time for same. Estefania JIMENES CM
[2018-10-29] MEDS: Atorvastatin Calcium 20 MG Tablet PO (22:00)
[2018-10-29] MEDS: guaiFENesin 1,200 MG Tablet 1200 MG PO (22:01)
[2018-10-29] MEDS: Pantoprazole Sodium 20 MG Tablet PO (22:01)
[2018-10-29] MEDS: traZODone 100 MG Tablet 200 MG PO (22:02)
[2018-10-29] MEDS: Gabapentin 300 MG Capsule 900 MG PO (22:02)
[2018-10-29] MEDS: Ibuprofen 400 MG Tablet 800 MG PO (22:02)
[2018-10-29] MEDS: Carvedilol 3.125 MG TABLET 6.25 MG PO (22:02)
[2018-10-29] MEDS: Ceftriaxone 1 GM/50 ML BAG IV (22:03)
[2018-10-30] VITALS (19 sets, daily range): BP systolic 108–150; BP diastolic 64–87; PULSE 58–93; RESP 12–22; TEMP 36.7–36.9; O2SAT 86–96
[2018-10-30 05:58] LABS: Hematocrit 30.2 % (37-47); Hemoglobin 9.4 g/dL (12.0-15.0)
[2018-10-30 06:05] LABS: Anion Gap 8 (5-15); BUN 33 mg/dL (7-18); BUN/Creat Ratio 30.8 RATIO (10-20); Calcium,Total 8.1 mg/dL (8.5-10.1); Chloride 109 mmol/L (98-107); Creatinine, Serum 1.07 mg/dL (0.55-1.02); EST Glomerular Filtration Rate 56 mL/min (>60); Est Glom Filt Rate - Afr Amer 68 mL/min (>60); Estimated Creatinine Clearance 45.88 ml/min; Glucose 119 mg/dL (74-106); Magnesium 2.3 mg/dL (1.6-2.6); Potassium 3.5 mmol/L (3.5-5.1); Sodium Level 143 mmol/L (136-145)
--- NOTE | 2018-10-30 06:24 | PCM.PN.PUL ---
Patient Problems: Active and Suspected Problems Respiratory failure with hypoxia (Acute) Anemia, unspecified (Acute) Sinus tachycardia by electrocardiogram (Acute) Bilateral pneumonia (Acute) Subjective: The patient was seen and examined at the bedside this morning. Events from the last 24 hours have been reviewed. The patient is currently afebrile, hemodynamically stable and maintaining appropriate oxygen saturations on 1 L/min via nasal cannula. Cardiac catheterization performed yesterday revealed normal coronary arteries with evidence of a dilated cardiomyopathy and elevated LVEDP. This morning, the patient reports improvement in her breathing quality. She does have a residual nonproductive cough. Unfortunately, she was never provided with an incentive spirometer. The patient was tolerant of BiPAP overnight. Objective: The patient's most recent lab work, culture data and imaging studies have all been personally reviewed. CTA chest revealed no evidence for pulmonary embolism. There was, nevertheless, evidence of diffuse bilateral multilobar infiltrates. Surface echocardiogram revealed normal LV size with an ejection fraction of 40 to 45% and stage I diastolic dysfunction. Infectious work-up has been largely unrevealing to date. - Physical Exam General: Alert, Oriented x3, Cooperative, No apparent distress, - - Sitting in bedside recliner. HEENT: Atraumatic, PERRLA, Normocephalic Oral: No Gingival or Mucosal Lesions/ Ulcerations Neck: Supple, No Nodes, Trachea Midline Lungs: - - Mild right basilar rales. Cardiovascular: Regular rate, Regular Rhythm, Normal S1, Normal S2, No murmurs Abdomen: Bowel Sounds Present, Soft, Non Tender, Obese Extremities: No clubbing, No cyanosis, No edema Skin: No breakdown Musculoskeletal: No Tenderness to Palpation of Joints or Extremities Lymphatic: No Cervical, Supraclavicular, or Inguinal Adenopathy Neurological: Cranial nerves II-XII grossly intact, Neuro grossly intact Psych/Mental Status: Alert and oriented to time, place, person, mood and affect Vital Signs Temp Pulse Resp BP Pulse Ox 98.5 F 68 12 135/67 H 96 10/30/18 03:30 10/30/18 03:30 10/30/18 03:30 10/30/18 03:30 10/30/18 03:30 Oxygen Flow Rate (L/min) 2 Oxygen Delivery Method Bi-pap Weight: 201 lb 4.513 oz Body Mass Index (BMI) 36.1 Intake and Output for Last 24 Hours 10/28/18 10/29/18 10/30/18 23:59 23:59 23:59 Intake Total 1617.5 / 1617.5 1010 / 1010 Output Total 1351 / 1351 653 / 653 Balance 266.5 / 266.5 357 / 357 Microbiology Past 72 Hours 10/26/18 18:00 Blood Culture - Preliminary Blood Culture (Wb) - Right Hand No growth in 48 hours. 10/26/18 17:00 Blood Culture - Preliminary Blood Culture (Wb) - Anticubital Right No growth in 48 hours. 10/26/18 20:20 Urine Culture - Final Urine, Clean Catch Mixed Gram Positive Organisms 10/27/18 Unknown Respiratory Panel (PCR) - Final Mucosa - Nose Laboratory Tests Past 24 Hrs 10/30/18 10/30/18 05:20 05:20 Hgb 9.4 L Hct 30.2 L Sodium 143 Potassium 3.5 Chloride 109 H Carbon Dioxide 26.0 Anion Gap 8 BUN 33 H Creatinine 1.07 H Estim Creat Clear Calc 45.88 Est GFR (MDRD) Af Amer 68 Est GFR (MDRD) Non-Af 56 L BUN/Creatinine Ratio 30.8 H Glucose 119 H Calcium 8.1 L Magnesium 2.3 Clinical Impression(s) from Imaging Studies Chest X-Ray 10/26/18 17:15 IMPRESSION: Scattered patchy bilateral infiltrates. Degenerative changes of the thoracic spine. Electronically Signed: Jono Ruth MD at 17:26 EDT , Service support , Chest CTA 10/27/18 15:04 IMPRESSION: Small bilateral pleural effusions with bilateral pulmonary infiltrates. No evidence of pulmonary embolism. Electronically Signed: Gene Herron, at 15:51 EDT , Service support , Medical Necessity - Tobacco Use Smoking Status: Never smoker Assessment/Plan All Active Problems Respiratory failure with hypoxia (Acute) Anemia, unspecified (Acute) Sinus tachycardia by electrocardiogram (Acute) Bilateral pneumonia (Acute) RECOMMENDATIONS: 1. Continue antibiotics, bronchodilators and steroids. 2. I would plan to complete a 7-day treatment course of antibiotics. 3. Continue to wean supplemental oxygen to maintain saturations at or above 90%. 4. Encourage incentive spirometer use and mobilize patient as tolerated. 5. Perform walking oximetry study prior to consideration for discharge from the hospital. 6. Outpatient pulmonary follow-up within 2 weeks of discharge. IMPRESSIONS: 1. Acute hypoxemic respiratory insufficiency Improving. The patient presented to the hospital with complaints of shortness of breath and cough along with recent radiographic evidence of multi focal pneumonia. Her oxygenation status has improved. We will plan to continue current supportive measures including antibiotics and bronchodilators. Continue to wean prednisone. Wean supplemental oxygen to maintain saturations at or above 90%. Encourage incentive spirometer use and mobilize patient as tolerated. 2. Newly identified systolic heart failure Defer medical management to cardiology. Continue diuretic therapy. 3. Concerns for sleep disordered breathing The patient endorsed symptoms concerning for underlying sleep disordered breathing including audible snoring, nonrestorative sleep and excessive daytime sleepiness. She has been maintained on empiric BiPAP while admitted to the hospital. I would recommend that the patient follow-up in the pulmonary medicine clinic to undergo a diagnostic polysomnogram upon discharge from the hospital. 4. History of venous thromboembolic disease/obesity/anemia/fibromyalgia/history of breast cancer status post mastectomy Complicates care, management, recovery and prognosis. Okay to continue home medications. CTA revealed no evidence for pulmonary embolism. This note was generated with [employer] dictation software. It may contain incorrect words, spelling, and punctuation that were not noted in checking the note before signing. Code Visit Inpatient E&M: 73991 Subs Hosp L2
[2018-10-30] MEDS: Ipratropium 0.5 MG/2.5 ML SOLUTION INHALATION ×5 (06:36→22:33)
[2018-10-30] MEDS: predniSONE 20 MG Tablet 30 MG PO (09:08)
[2018-10-30] MEDS: Aspirin 81 MG TAB.CHEW PO (09:09)
[2018-10-30] MEDS: Gabapentin 300 MG Capsule PO ×2 (09:09→17:20)
[2018-10-30] MEDS: Carvedilol 3.125 MG TABLET 6.25 MG PO ×2 (09:09→21:46)
[2018-10-30] MEDS: guaiFENesin 1,200 MG Tablet 1200 MG PO ×2 (09:10→21:46)
[2018-10-30] MEDS: Furosemide 40 MG Tablet PO ×2 (09:10→17:20)
[2018-10-30] MEDS: buPROPion (XL) 150 MG TABLET.XL PO (09:11)
[2018-10-30] MEDS: Escitalopram Oxalate 20 MG Tablet PO (09:11)
[2018-10-30] MEDS: Lisinopril 2.5 MG Tablet PO ×2 (09:11→17:20)
[2018-10-30] MEDS: Enoxaparin 40 MG/0.4 ML Syringe SC (09:14)
--- NOTE | 2018-10-30 16:20 | PCM.PROGNOTE ---
Patient Problems: Active and Suspected Problems Respiratory failure with hypoxia (Acute) Anemia, unspecified (Acute) Sinus tachycardia by electrocardiogram (Acute) Bilateral pneumonia (Acute) Subjective: Day #5 antibiotics-ceftriaxone All events of the past 24 hours have been reviewed. She is afebrile. Heart rate has come under better control and she is only had one brief episode of sinus tachycardia since yesterday and that was with exertion while walking in the halls. Heart rate went up to 122. Blood pressures are not elevated at times and have ranged from 112/64-150 8/89 over the past 12 hours. Telemetry shows normal sinus rhythm with no significant ectopy She is 91 to 92% on room air at rest and was 88-90 on room air with ambulation. She continues to cough but is coughing less now. States her breathing is significantly improved. She denies chest pain. She denies any soreness in her mouth or painful swallowing and also denies vaginal discharge or itching and diarrhea. Objective: PHYSICAL EXAM: GENERAL: alert, oriented X 3, Cooperative, NAD ORAL: moist mucosa, no mucosal lesions NECK: No JVD, supple, trachea midline LUNGS: CTA, symmetric chest expansion, still coughing some, joe with deep breaths HEART: RRR, Normal S1 and S2, no rub, no gallop, no MM ABDOMEN: soft, NT, ND, BS present, no guarding with palpation EXTREMITIES: no edema, no cyanosis, no calf tenderness SKIN: No rashes, no breakdown NEUROLOGIC: no focal neurologic deficits PSYCH: appropriate, normal affect, pleasant - Physical Exam Vital Signs Temp Pulse Resp BP Pulse Ox 98.0 F 82 16 112/64 92 10/30/18 09:05 10/30/18 15:10 10/30/18 15:10 10/30/18 09:05 10/30/18 15:10 Oxygen Flow Rate (L/min) 1 Oxygen Delivery Method Room Air Weight: 201 lb 4.513 oz Body Mass Index (BMI) 36.1 Intake and Output for Last 24 Hours 10/28/18 10/29/18 10/30/18 23:59 23:59 23:59 Intake Total 1617.5 / 1617.5 1010 / 1010 590 / 590 Output Total 1351 / 1351 653 / 653 950 / 950 Balance 266.5 / 266.5 357 / 357 -360 / -360 Microbiology Past 72 Hours 10/26/18 18:00 Blood Culture - Preliminary Blood Culture (Wb) - Right Hand No growth in 48 hours. 10/26/18 17:00 Blood Culture - Preliminary Blood Culture (Wb) - Anticubital Right No growth in 48 hours. 10/26/18 20:20 Urine Culture - Final Urine, Clean Catch Mixed Gram Positive Organisms 10/27/18 Unknown Respiratory Panel (PCR) - Final Mucosa - Nose Laboratory Tests Past 24 Hrs 10/30/18 10/30/18 05:20 05:20 Hgb 9.4 L Hct 30.2 L Sodium 143 Potassium 3.5 Chloride 109 H Carbon Dioxide 26.0 Anion Gap 8 BUN 33 H Creatinine 1.07 H Estim Creat Clear Calc 45.88 Est GFR (MDRD) Af Amer 68 Est GFR (MDRD) Non-Af 56 L BUN/Creatinine Ratio 30.8 H Glucose 119 H Calcium 8.1 L Magnesium 2.3 Medical Necessity - Tobacco Use Smoking Status: Never smoker Assessment/Plan All Active Problems Respiratory failure with hypoxia (Acute) Anemia, unspecified (Acute) Sinus tachycardia by electrocardiogram (Acute) Bilateral pneumonia (Acute) Day #5 Rocephin Impressions 1. CAP with multilobar infiltrates and a non-productive cough. Respiratory panel negative. Legionella and streptococcal antigens are negative. Continue Rocephin and azithromycin. Continue incentive spirometry and PEP. Continue aerosolized bronchodilators. Incision from Solu-Medrol to prednisone on 10/29/2018. Transition from Rocephin to Omnicef on 10/30/2018 2. 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 VTE was thought to be due to Tamoxifen and she has not been anticoagulated because the Tamoxifen was discontinued. CTA was negative for pulmonary emboli. 3. hx of breast CA - mastectomy in 2013. 4. Fibromyalgia- gabapentin and ibuprofen continued 5. Obesity 6. Acute respiratory failure with hypoxemia requiring BIPAP 7. Normochromic normocytic anemia with an increased RDW. Hemoglobin is stable. 8. sleep disordered breathing - continue BIPAP while sleeping. She will follow-up with Dr. Hernandez as an outpatient to arrange PFTs and a sleep study. 9. CM with a 40-45% EF and segmental wall motion abnormalities -cardiac catheterization negative for any significant coronary artery disease. 10. HTN - increase Lisinopril to 5 mg daily ambulatory pulse ox on RA in the AM and if she remains stable and the BP is OK will DC home. Code Visit Inpatient E&M: 37704 Subs Hosp L2
[2018-10-30] MEDS: Ibuprofen 400 MG Tablet 800 MG PO (20:40)
[2018-10-30] MEDS: Atorvastatin Calcium 20 MG Tablet PO (21:45)
[2018-10-30] MEDS: Pantoprazole Sodium 20 MG Tablet PO (21:45)
[2018-10-30] MEDS: Gabapentin 300 MG Capsule 900 MG PO (21:46)
[2018-10-30] MEDS: traZODone 100 MG Tablet 200 MG PO (21:46)
[2018-10-30] MEDS: Cefdinir 300 MG Capsule PO (21:47)
[2018-10-31] VITALS (10 sets, daily range): BP systolic 102–114; BP diastolic 56–63; PULSE 60–84; RESP 12–18; TEMP 36.8–37.2; O2SAT 91–99
--- NOTE | 2018-10-31 06:58 | PCM.PN.PUL ---
Patient Problems: Active and Suspected Problems Respiratory failure with hypoxia (Acute) Anemia, unspecified (Acute) Sinus tachycardia by electrocardiogram (Acute) Bilateral pneumonia (Acute) Subjective: The patient was seen and examined at the bedside this morning. Events from the last 24 hours have been reviewed. The patient is currently afebrile, hemodynamically stable and maintaining appropriate oxygen saturations on room air. The patient continues to tolerate BiPAP nightly. The patient is currently sitting in her bedside recliner. The patient states that she was able to ambulate in the hallway yesterday without significant respiratory limitations. Objective: The patient's most recent lab work, culture data and imaging studies have all been personally reviewed. CTA chest revealed no evidence for pulmonary embolism. There was, nevertheless, evidence of diffuse bilateral multilobar infiltrates. Surface echocardiogram revealed normal LV size with an ejection fraction of 40 to 45% and stage I diastolic dysfunction. Infectious work-up has been largely unrevealing to date. - Physical Exam General: Alert, Oriented x3, Cooperative, No apparent distress HEENT: Atraumatic, PERRLA, Normocephalic Oral: No Gingival or Mucosal Lesions/ Ulcerations Neck: Supple, No Nodes, Trachea Midline Lungs: No rhonchi, No wheeze, No rales, Diminished Cardiovascular: Regular rate, Regular Rhythm, Normal S1, Normal S2, No murmurs Abdomen: Bowel Sounds Present, Soft, Non Tender, Obese Extremities: No clubbing, No cyanosis, No edema Skin: No breakdown Musculoskeletal: No Tenderness to Palpation of Joints or Extremities, No Muscle Wasting Lymphatic: No Cervical, Supraclavicular, or Inguinal Adenopathy Neurological: Cranial nerves II-XII grossly intact, Neuro grossly intact Psych/Mental Status: Alert and oriented to time, place, person, mood and affect Vital Signs Temp Pulse Resp BP Pulse Ox 98.9 F 74 13 102/56 L 96 10/31/18 03:00 10/31/18 04:05 10/31/18 04:05 10/31/18 03:00 10/31/18 04:05 Oxygen Flow Rate (L/min) 1 Oxygen Delivery Method Bi-pap Weight: 200 lb 2.876 oz Body Mass Index (BMI) 36.1 Intake and Output for Last 24 Hours 10/29/18 10/30/18 10/31/18 23:59 23:59 23:59 Intake Total 1010 / 1010 1070 / 1220 150 / 150 Output Total 653 / 653 1050 / 1050 Balance 357 / 357 20 / 170 150 / 150 Microbiology Past 72 Hours 10/26/18 18:00 Blood Culture - Preliminary Blood Culture (Wb) - Right Hand No growth in 48 hours. 10/26/18 17:00 Blood Culture - Preliminary Blood Culture (Wb) - Anticubital Right No growth in 48 hours. 10/26/18 20:20 Urine Culture - Final Urine, Clean Catch Mixed Gram Positive Organisms Laboratory Tests Past 24 Hrs 10/31/18 06:20 Sodium Pending Potassium Pending Chloride Pending Carbon Dioxide Pending Anion Gap Pending BUN Pending Creatinine Pending Est GFR (MDRD) Af Amer Pending Est GFR (MDRD) Non-Af Pending BUN/Creatinine Ratio Pending Glucose Pending Calcium Pending Clinical Impression(s) from Imaging Studies Chest X-Ray 10/26/18 17:15 IMPRESSION: Scattered patchy bilateral infiltrates. Degenerative changes of the thoracic spine. Electronically Signed: Jono Ruth MD at 17:26 EDT , Service support , Chest CTA 10/27/18 15:04 IMPRESSION: Small bilateral pleural effusions with bilateral pulmonary infiltrates. No evidence of pulmonary embolism. Electronically Signed: Gene Herron, at 15:51 EDT , Service support , Medical Necessity - Tobacco Use Smoking Status: Never smoker Assessment/Plan All Active Problems Respiratory failure with hypoxia (Acute) Anemia, unspecified (Acute) Sinus tachycardia by electrocardiogram (Acute) Bilateral pneumonia (Acute) RECOMMENDATIONS: 1. Continue antibiotics, bronchodilators and steroids. 2. I would plan to complete a 7-day treatment course of antibiotics. 3. Encourage incentive spirometer use and mobilize patient as tolerated. 4. Perform walking oximetry study prior to consideration for discharge from the hospital. 5. Outpatient pulmonary follow-up within 2 weeks of discharge. IMPRESSIONS: 1. Acute hypoxemic respiratory insufficiency Improved. The patient presented to the hospital with complaints of shortness of breath and cough along with recent radiographic evidence of multi focal pneumonia. Her oxygenation status has improved. We will plan to continue current supportive measures including antibiotics and bronchodilators. Continue to wean prednisone. Encourage incentive spirometer use and mobilize patient as tolerated. Recommend performing walking oximetry study prior to consideration for discharge from the hospital. The patient should ideally follow-up in the pulmonary medicine clinic within 2 weeks of discharge. 2. Newly identified systolic heart failure Defer medical management to cardiology. Continue diuretic therapy. 3. Concerns for sleep disordered breathing The patient endorsed symptoms concerning for underlying sleep disordered breathing including audible snoring, nonrestorative sleep and excessive daytime sleepiness. She has been maintained on empiric BiPAP while admitted to the hospital. I would recommend that the patient follow-up in the pulmonary medicine clinic to undergo a diagnostic polysomnogram upon discharge from the hospital. 4. History of venous thromboembolic disease/obesity/anemia/fibromyalgia/history of breast cancer status post mastectomy Complicates care, management, recovery and prognosis. Okay to continue home medications. CTA revealed no evidence for pulmonary embolism. This note was generated with [employer] dictation software. It may contain incorrect words, spelling, and punctuation that were not noted in checking the note before signing. Code Visit Inpatient E&M: 69150 Subs Hosp L2
[2018-10-31 07:00] LABS: Anion Gap 5 (5-15); BUN 34 mg/dL (7-18); BUN/Creat Ratio 29.8 RATIO (10-20); Calcium,Total 8.2 mg/dL (8.5-10.1); Chloride 109 mmol/L (98-107); Creatinine, Serum 1.14 mg/dL (0.55-1.02); EST Glomerular Filtration Rate 52 mL/min (>60); Est Glom Filt Rate - Afr Amer 63 mL/min (>60); Estimated Creatinine Clearance 43.06 ml/min; Glucose 89 mg/dL (74-106); Potassium 3.5 mmol/L (3.5-5.1); Sodium Level 142 mmol/L (136-145)
[2018-10-31] MEDS: Ipratropium 0.5 MG/2.5 ML SOLUTION INHALATION ×2 (07:07→11:01)
[2018-10-31] MEDS: Carvedilol 3.125 MG TABLET 6.25 MG PO (07:59)
[2018-10-31] MEDS: Gabapentin 300 MG Capsule PO (07:59)
[2018-10-31] MEDS: guaiFENesin 1,200 MG Tablet 1200 MG PO (08:00)
[2018-10-31] MEDS: Furosemide 40 MG Tablet PO (08:00)
[2018-10-31] MEDS: predniSONE 20 MG Tablet 30 MG PO (08:00)
[2018-10-31] MEDS: Cefdinir 300 MG Capsule PO (08:00)
[2018-10-31] MEDS: buPROPion (XL) 150 MG TABLET.XL PO (08:01)
[2018-10-31] MEDS: Lisinopril 5 MG Tablet PO (08:01)
[2018-10-31] MEDS: Aspirin 81 MG TAB.CHEW PO (08:01)
[2018-10-31] MEDS: Escitalopram Oxalate 20 MG Tablet PO (08:01)
[2018-10-31] MEDS: Enoxaparin 40 MG/0.4 ML Syringe SC (08:01)
[2018-10-31] MEDS: Ibuprofen 400 MG Tablet 800 MG PO (08:05)
--- NOTE | 2018-10-31 11:05 | DCINST_ITS ---
- Discharge Diagnoses Current Active Problems: Current Active and Chronic Problems Respiratory failure with hypoxia (Acute) Anemia, unspecified (Acute) Depression (Chronic) Fibromyalgia (Chronic) History of breast cancer (Chronic) Status post left mastectomy. Sinus tachycardia by electrocardiogram (Acute) Bilateral pneumonia (Acute) You will use the following diet at home:: No restrictions Your food should be the consistency of: Regular Your liquids should be the consistency of: Regular/Thin Discharge Activity: - - activity as tolerated. Avoid exposure to any strong smells such as bleach, cleaning products, strong colognes or perfumes, paint fumes and smoke of any kind. Avoid sudden exposure to cold air because this can cause bronchospasm. You may want to cover your mouth when you go outside in the winter. Avoid exposure to anyone who is sick with a cough or sore throat. Lifting Restrictions: 5-10 lbs Call your doctor if you observe: Fever of 101 or Higher, Shortness of breath, Dizziness, Fainting spells, Swelling in the ankles, Chest pain, - - Call your PCP if severe diarrhea ( > 5 stools a day), painful sores in the mouth, painful swallowing, rash or itching. Taking a probiotic such as Lactobacillus or Kefir can help with loose stools while taking antibiotics. Additional Instructions: 1. Your heart muscle is a little weak and you are on a few new medications to help it pump better. You had no coronary artery disease on the cardiac catheterization. The weakness may be due to a viral infection or even to stress. It will need to be followed overtime by cardiology to see if it improves. Watch the salt in your diet. The more salt you eat the more fluid you will retain. Try and stick to a 2 GM sodium diet and learn to ready labels. Buy a digital scale and weigh yourself every morning and keep a record. If your weight goes up by more than 5 lbs in [address] Solorzano for advice. I am referring you to a PCP who is an senior solutions engineer. Her name is Dr. Gilmar Self and her office is on [facility] in [place] which is off [address] [facility] just past [address] and [address]. 2. You should be followed by an oncologist. There are 2 here at the [facility], Dr. Crowell and Dr. Arredondo and they are both great and easy to talk with. You also need to have a PAP smear.....if Dr. Self does not do PAP smears then a good Doc to follow up with is Dr. Coco Lopez from the [facility]. 3. Take it easy for the next 1-2 weeks. you had a lot go on in the hospital and it is going to take a while to get back to your baseline. It was a pleasure to meet you and I would be very happy to care for you anytime you are in the hospital. Pending Tests on Discharge: none Allergies/Adverse Reactions: Allergies tamoxifen Allergy (Verified 10/26/18 19:21) PE/DVT's Medications to take at Discharge Acetaminophen [Tylenol Extra Strength] 1,000 mg PO TID PRN PRN 10/26/18 Aspirin/Acetaminophen/Caffeine [Excedrin Extra Strength Caplet] 2 tab PO DAILY PRN PRN 10/26/18 Dextromethorphan Polistirex [Delsym] 10 ml PO Q4H PRN PRN 10/26/18 Escitalopram Oxalate 20 mg PO DAILY 10/26/18 Gabapentin [Neurontin] 300 mg PO BID 10/26/18 Gabapentin [Neurontin] 900 mg PO QHS 10/26/18 Ibuprofen 800 mg PO BID PRN PRN 10/26/18 Omeprazole [Prilosec] 20 mg PO QHS 10/26/18 Trazodone HCl 200 mg PO QHS 10/26/18 buPROPion XL [Wellbutrin Xl] 150 mg PO DAILY 10/26/18 Carvedilol [Coreg (Beta Milagro)] 6.25 mg PO BID #60 tab 10/31/18 Cefdinir [Omnicef [equiv]] 300 mg PO Q12 #8 cap 10/31/18 Furosemide [Lasix] 40 mg PO DAILY #30 tab 10/31/18 Lisinopril [Zestril] 5 mg PO DAILY #30 tab 10/31/18 Potassium Chloride [K-Dur] 20 meq PO DAILY #30 tab 10/31/18 Prednisone 10 mg PO DAILY #9 tab 10/31/18 The following prescriptions were given: Carvedilol [Coreg (Beta Milagro)] 6.25 mg PO BID #60 tab Transmission Status: Pending to [facility] [facility] Potassium Chloride [K-Dur] 20 meq PO DAILY #30 tab Transmission Status: Pending to [facility] Furosemide [Lasix] 40 mg PO DAILY #30 tab Transmission Status: Pending to [facility] Cefdinir [Omnicef [equiv]] 300 mg PO Q12 #8 cap Transmission Status: Pending to [facility] Prednisone 10 mg PO DAILY #9 tab Transmission Status: Pending to [facility] Lisinopril [Zestril] 5 mg PO DAILY #30 tab Transmission Status: Pending to [facility] Primary Care Physician: Radha Eduardo [Primary Care Provider] - Test Results: Test results from this visit will be discussed in further detail at your follow- up appointment, if applicable. Please Follow Up With: Vivi Self MD When: 5-7 days Please Follow Up With: Dr. Arredondo or Dr. Crowell When: within the next month Please Follow Up With: Brad Solorzano MD When: 4-6 weeks Please Follow Up With: Coco Lopez MD When: for PAP/pelvic Please Follow Up With: Mikhail Hernandez DO When: 2 weeks to arrange for a sleep study Proposed Discharge Date: 10/31/18
--- NOTE | 2018-10-31 12:01 | PCM.DC.SUM ---
Discharge Date and Diagnosis - Problem List Patient Problems: Active and Suspected Problems Cardiomyopathy (Acute) Respiratory failure with hypoxia (Acute) Anemia, unspecified (Acute) Sinus tachycardia by electrocardiogram (Acute) Bilateral pneumonia (Acute) Date of Admission: 10/26/18 Date of Discharge: 10/31/18 - Primary Discharge Diagnosis Active and Suspected Problems Acute Respiratory failure with hypoxia (Acute) Bilateral pneumonia (Acute) Acute systolic congestive heart failure Sinus tachycardia by electrocardiogram (Acute) Cardiomyopathy (Acute)- 40-45% EF with no CAD on Cath Anemia, unspecified (Acute)- N/N - Secondary Discharge Diagnosis Chronic Problems Hypertension (Chronic) Sleep-disordered breathing (Chronic) Depression (Chronic) Fibromyalgia (Chronic) History of breast cancer (Chronic) Status post left mastectomy. History of pulmonary embolus (PE) (Chronic) while on Tamoxifen History of DVT of lower extremity (Chronic) Hospital Course and Treatment Imaging Results: Clinical Impression(s) from Imaging Studies Chest X-Ray 10/26/18 17:15 IMPRESSION: Scattered patchy bilateral infiltrates. Degenerative changes of the thoracic spine. Electronically Signed: Jono Ruth MD at 17:26 EDT , Service support , Chest CTA 10/27/18 15:04 IMPRESSION: Small bilateral pleural effusions with bilateral pulmonary infiltrates. No evidence of pulmonary embolism. Electronically Signed: Gene Herron, at 15:51 EDT , Service support , Laboratory Results - last 24 hr 10/31/18 06:20 Sodium 142 Potassium 3.5 Chloride 109 H Carbon Dioxide 28.0 Anion Gap 5 BUN 34 H Creatinine 1.14 H Estim Creat Clear Calc 43.06 Est GFR (MDRD) Af Amer 63 Est GFR (MDRD) Non-Af 52 L BUN/Creatinine Ratio 29.8 H Glucose 89 Calcium 8.2 L Microbiology 10/26/18 18:00 Blood Culture (Wb) - Right Hand Blood Culture - Preliminary No growth in 48 hours. 10/26/18 17:00 Blood Culture (Wb) - Anticubital Right Blood Culture - Preliminary No growth in 48 hours. 10/26/18 20:20 Urine, Clean Catch Urine Culture - Final Mixed Gram Positive Organisms 10/27/18 Unknown Mucosa - Nose Respiratory Panel (PCR) - Final negative 10/26/18 20:20 Urine, Clean Catch Streptococcus pneumoniae Antigen (M - Final negative 10/26/18 20:20 Urine, Clean Catch Legionella Antigen - Final Negative Dr. Mikhail Hernandez-pulmonary medicine Dr. Brad Solorzano-[facility] Operations: None Procedures: 2-D Echocardiogram - Interpretation Summary The study was technically difficult. Contrast injection was performed. Diluted definity 3ml given slow IV push to enhance endocardial definition. The estimated ejection fraction is 40-45 %. Stage 1 diastolic dysfunction. [place] : Hypokinetic. Anteroseptal Hypokinesis The study was technically difficult. Contrast injection was performed., Cardiac catheterization - Left ventricular ejection fraction by left ventriculogram is 45% and there is anterior hypokinesis which is mild. Left main, left anterior descending, circumflex artery and right coronary artery were all angiographically normal. Summary of Care Provided: The patient is a 57-year-old female with a past medical history of depression, fibromyalgia, breast cancer (status post left mastectomy), pulmonary emboli, DVTs of the lower extremity and obesity who presented to the emergency department at [facility] on 10/26/2018 complaining of cough and shortness of breath that started approximately 7 days prior to presentation to the emergency department. Vital signs at presentation to the emergency department were temperature 98 ?F, pulse rate 126, blood pressure 154/95, respiratory rate 26 and she was 88% saturated on room air. Pulse ox on a 2 L nasal cannula was 95%. White blood cell count was 9.1 with a left shift. Hemoglobin was 11.1 and platelets were 152,000. PTT was prolonged at 51.7 and the PT was within normal limits. CMP was remarkable for an increased creatinine at 1.06. Creatinine in May 2017 was 0.85. A random blood sugar was 118. Lactic acid was normal at 1.2. LFTs were unremarkable. UA was negative for leukocyte esterase. Chest x-ray showed scattered patchy bilateral infiltrates. She was admitted to the hospital with sepsis secondary to community-acquired pneumonia. She was started on Rocephin, azithromycin and aerosolized bronchodilators. Legionella and streptococcal antigens in the urine were negative. Blood cultures had no growth. Respiratory panel was negative. Urine culture had mixed gram-positive organisms. On 10/27/18 as the day progressed she became more SOB, more tachypneic and developed ST. She required BIPAP to keep the O2 saturation >88%. She was transferred to the ICU. IV fluids were decreased to 30 cc/hr and she was kept NPO. On PE she had poor air exchange throughout with diffuse wheezing, conversational dyspnea, pursed lip breathing and tachypnea. She was started on IV solu-medrol and the antibiotics were continued as well as the ATC aerosolized bronchodilators. The following morning she was down to a 2 L NC but still was markedly tachypneic and tachycardic with even minimal exertion. She was seen in consult by Dr. Mikhail Hernandez who recommended continuing supportive measures. A BNP was checked and was increased at 525. IV fluids were discontinued and she was given a dose of Lasix 40 mg IV. ECHO was obtained and showed a 40 to 45% ejection fraction with wall hypokinesis in the apex and anteroseptal areas. There was stage I diastolic dysfunction. She was seen in consult by Dr. Solorzano who recommended a cardiac catheterization and the pt was agreeable. The cath showed a 45% EF with no CAD. Medical management of CHF was recommended. She was started on Coreg, Lisinopril and Lasix 40 mg IV BID. She improved and on 10/31/2018 she was afebrile and hemodynamically stable. She was 94% on room air at rest and 91% on room air with ambulation. He needs to have a dry cough. Auscultation of her lungs on that day revealed them to be clear to auscultation throughout with good air exchange, much improved from admission. She was not tachypneic and had no conversational dyspnea or accessory muscle use. There was symmetric chest expansion. She has not been following with oncology and in the past it was recommended she have a PRISCILA with BSO. She told me that her PCP has been ordering MMG's for her and they have been negative. She has not had a recent PAP or Pelvic. She would like a PCP who practises in [place] since she now lives in [place]. She was referred to [facility], Dr. Lopez and Dr. Self for follow up care. She will continue to follow up with Dr. Solorzano for CM with systolic CHF. She will follow up in the pulmonary clinic with Dr. Hernandez to arrange a sleep study. She was discharged in good condition on 10/31/18. GENERAL: alert, oriented X 3, Cooperative, NAD ORAL: moist mucosa, no mucosal lesions NECK: No JVD, supple, trachea midline LUNGS: CTA, symmetric chest expansion, still coughing some, joe with deep breaths, good air exchange, not tachypnea and has no conversational dyspnea HEART: RRR, Normal S1 and S2, no rub, no gallop, no MM ABDOMEN: soft, NT, ND, BS present, no guarding with palpation EXTREMITIES: no edema, no cyanosis, no calf tenderness SKIN: No rashes, no breakdown NEUROLOGIC: no focal neurologic deficits PSYCH: appropriate, normal affect, pleasant This note was generated with [employer] dictation software. It may contain incorrect words, spelling, and punctuation that were not noted in checking the note before signing. Patient Problems: Active and Suspected Problems Cardiomyopathy (Acute) Respiratory failure with hypoxia (Acute) Anemia, unspecified (Acute) Sinus tachycardia by electrocardiogram (Acute) Bilateral pneumonia (Acute) - Physical Exam Vital Signs Temp Pulse Resp BP Pulse Ox 98.3 F 75 16 114/63 91 10/31/18 09:00 10/31/18 11:00 10/31/18 11:00 10/31/18 09:00 10/31/18 11:00 Oxygen Flow Rate (L/min) 1 Oxygen Delivery Method Room Air Weight: 200 lb 2.876 oz Body Mass Index (BMI) 36.1 Intake and Output for Last 24 Hours 10/29/18 10/30/18 10/31/18 23:59 23:59 23:59 Intake Total 1010 / 1010 1070 / 1220 150 / 150 Output Total 653 / 653 1050 / 1050 Balance 357 / 357 20 / 170 150 / 150 Microbiology Past 72 Hours 10/26/18 18:00 Blood Culture - Preliminary Blood Culture (Wb) - Right Hand No growth in 48 hours. 10/26/18 17:00 Blood Culture - Preliminary Blood Culture (Wb) - Anticubital Right No growth in 48 hours. 10/26/18 20:20 Urine Culture - Final Urine, Clean Catch Mixed Gram Positive Organisms Laboratory Tests Past 24 Hrs 10/31/18 06:20 Sodium 142 Potassium 3.5 Chloride 109 H Carbon Dioxide 28.0 Anion Gap 5 BUN 34 H Creatinine 1.14 H Estim Creat Clear Calc 43.06 Est GFR (MDRD) Af Amer 63 Est GFR (MDRD) Non-Af 52 L BUN/Creatinine Ratio 29.8 H Glucose 89 Calcium 8.2 L Discharge Activity: - - activity as tolerated. Avoid exposure to any strong smells such as bleach, cleaning products, strong colognes or perfumes, paint fumes and smoke of any kind. Avoid sudden exposure to cold air because this can cause bronchospasm. You may want to cover your mouth when you go outside in the winter. Avoid exposure to anyone who is sick with a cough or sore throat. Call your doctor if you observe: Fever of 101 or Higher, Shortness of breath, Dizziness, Fainting spells, Swelling in the ankles, Chest pain, - - Call your PCP if severe diarrhea ( > 5 stools a day), painful sores in the mouth, painful swallowing, rash or itching. Taking a probiotic such as Lactobacillus or Kefir can help with loose stools while taking antibiotics. Home Medications: Medications to take at Discharge Acetaminophen [Tylenol Extra Strength] 1,000 mg PO TID PRN PRN 10/26/18 Aspirin/Acetaminophen/Caffeine [Excedrin Extra Strength Caplet] 2 tab PO DAILY PRN PRN 10/26/18 Dextromethorphan Polistirex [Delsym] 10 ml PO Q4H PRN PRN 10/26/18 Escitalopram Oxalate 20 mg PO DAILY 10/26/18 Gabapentin [Neurontin] 300 mg PO BID 10/26/18 Gabapentin [Neurontin] 900 mg PO QHS 10/26/18 Ibuprofen 800 mg PO BID PRN PRN 10/26/18 Omeprazole [Prilosec] 20 mg PO QHS 10/26/18 Trazodone HCl 200 mg PO QHS 10/26/18 buPROPion XL [Wellbutrin Xl] 150 mg PO DAILY 10/26/18 Carvedilol [Coreg (Beta Milagro)] 6.25 mg PO BID #60 tab 10/31/18 Cefdinir [Omnicef [equiv]] 300 mg PO Q12 #8 cap 10/31/18 Furosemide [Lasix] 40 mg PO DAILY #30 tab 10/31/18 Lisinopril [Zestril] 5 mg PO DAILY #30 tab 10/31/18 Potassium Chloride [K-Dur] 20 meq PO DAILY #30 tab 10/31/18 Prednisone 10 mg PO DAILY #9 tab 10/31/18 Following Prescrptions Were Given to Patient: Carvedilol [Coreg (Beta Milagro)] 6.25 mg PO BID #60 tab Transmission Status: Pending to [facility] Potassium Chloride [K-Dur] 20 meq PO DAILY #30 tab Transmission Status: Pending to [facility] Furosemide [Lasix] 40 mg PO DAILY #30 tab Transmission Status: Pending to [facility] Cefdinir [Omnicef [equiv]] 300 mg PO Q12 #8 cap Transmission Status: Pending to [facility] Prednisone 10 mg PO DAILY #9 tab Transmission Status: Pending to [facility] Lisinopril [Zestril] 5 mg PO DAILY #30 tab Transmission Status: Pending to [facility] Primary Care Physician: Radha Eduardo [Primary Care Provider] - Please Follow Up With: Vivi Self MD When: 5-7 days Please Follow Up With: Dr. Arredondo or Dr. Crowell When: within the next month Please Follow Up With: Brad Solorzano MD When: 4-6 weeks Please Follow Up With: Coco Lopez MD When: for PAP/pelvic Please Follow Up With: Mikhail Hernandez DO When: 2 weeks to arrange for a sleep study Minutes spent on discharge:: 40 Patient Condition:: Good Medical Necessity - Tobacco Use Smoking Status: Never smoker Tobacco Use: Non-smoker Meaningful Use Info Meaningful Use Diagnoses (Choose all that apply): CHF - CHF JACQUELINE/ARB ordered at discharge?: Yes Documented LVEF (%): 45 Code Visit Inpatient E&M: 39237 Disch Hosp
--- NOTE | 2018-11-11 09:58 | CL.D_ITS ---
Patient Name: HUMBERTO SEN Study Date: 10/29/2018 Performing: Brad Solorzano MD Ht: 61.81 inches 157 cm : 1960 Wt: 202.83 lbs 92 kg Age: 57 Gender: female BSA: 1.92 PROCEDURE(S) PERFORMED [id number]/LV CLINICAL PROFILE AND INDICATIONS Indications: Other, Other, Cardiomyopathy Heart Failure: NYHA Class: 2, Newly Diagnosed: Yes, Heart Failure Type: Systolic Stress/Imaging Stress/Image Study Performed: No CONCLUSIONS Normal coronary arteries Cardiomyopathy: Dilated Elevated LVEDP RECOMMENDATIONS Medical therapy DESCRIPTION OF PROCEDURE The patient arrived to the procedure lab. The risks and benefits of the procedure as well as a full d escription of our services here and current unavailability of surgical backup were fully explained to the patient and/or their significant other prior to the catheterization. The Timeout was completed, verifying the correct patient and procedure. The patient's procedural site was prepped and draped in the usual fashion. Local anesthetic was given subcutaneously to right radial region with Lidocaine 2% . Using a modified Seldinger technique, arterial access was obtained via the right radial artery, a 6 Fr sheath was inserted. Left Coronary Artery selective angiography was performed in multiple views u sing a 5 Fr. 4.0 Savanna catheter. Right Coronary Artery selective angiography was then performed in mu ltiple views using a 5 Fr. 4.0 Savanna catheter. Left Ventriculography was performed in ADAMS projection using a 5 Fr. tiger. LV to AO pullback pressures were then recorded.The arterial sheath was pulled and a TR Band was applied for hemostasis CORONARY ANGIOGRAPHY DOMINANCE: Right Dominant LEFT HEART ASSESSMENT Left Ventricular Ejection Fraction: by LV Gram 45 % Anterior Hypokinesis - Mild LEFT MAIN: Angiographically normal LEFT ANTERIOR DESCENDING ARTERY: Angiographically normal CIRCUMFLEX ARTERY: Angiographically normal RIGHT CORONARY ARTERY: Angiographically normal COMPLICATIONS No Complications PROCEDURE MEDICATIONS Fentanyl 50 mcg IV Versed 1 mg IV Oxygen: 2 L/min via nasal cannula Heparin diluted in 23cc Heparinized saline. Patient given 10cc IA of this solution. 10/29/2018 12:10: 05 Verapamil 2.5mg, Ntg 100mcgs, 2000 units of Heparin diluted in 23cc Heparinized saline. Patient give n 10cc IA of this solution. 10/29/2018 12:10:05 SUMMARY OF HEMODYNAMIC DATA Time AIR REST ECG 11:47:57 AO 115/79 (94) SA 12:10:43 LV 115/15, 32 12:14:24 LV 115/18, 31 12:14:31 LV 118/18, 27 12:15:51 LVp 120/20, 33 12:16:04 AOp 116/80 (96) 12:16:09 12:22:24 Signed By Brad Solorzano MD On 10/29/2018 12:22:45 PM Brad Solorzano MD
== END 2018-10-31 13:55 | disposition home or self-care (01) | DRG 871 ==
LOC: ED 19:06 → PCU 19:20 → ICU 10-27 18:35 → PCU 10-28 14:01
PROVIDERS: Internal Medicine Critical Care Medicine; Admitting Provider Hospitalist; Emergency Provider Emergency Medicine; Family Provider Family Medicine; PCP Family Medicine; Visit Provider Internal Medicine
DX: A41.9 Sepsis, unspecified organism (principal); J96.01 Acute respiratory failure with hypoxia; J18.9 Pneumonia, unspecified organism; I50.21 Acute systolic (congestive) heart failure; I42.0 Dilated cardiomyopathy; M79.7 Fibromyalgia; E66.9 Obesity, unspecified; D64.9 Anemia, unspecified; R00.0 Tachycardia, unspecified; I11.0 Hypertensive heart disease with heart failure; F32.9 Major depressive disorder, single episode, unspecified; G47.30 Sleep apnea, unspecified; Z85.3 Personal history of malignant neoplasm of breast; Z86.718 Personal history of other venous thrombosis and embolism; Z86.711 Personal history of pulmonary embolism; Z68.36 Body mass index [BMI] 36.0-36.9, adult; Z79.899 Other long term (current) drug therapy
CPT/HCPCS: 36415; 36600; 71046; 71275; 80048; 80053; 80061; 81002; 82803; 83605; 83735; 83880; 84100; 84439; 84443; 84484; 85014; 85018; 85025; 85027; 85610; 85730; 87040; 87086; 87088; 87449; 87633; 93005; 93306; 93458; 94002; 94003; 94640; 94667; 94668; 99152; 99285; J7030; J7040; Q9957; Q9967; A4216; C1769; C1894; C8929; J1940

== ENCOUNTER → 2018-11-16 12:27 | Outpatient (CLI) | payer OTHER, SELFPAY ==
[2018-11-05 11:02] VITALS: BMI 35.1
--- NOTE | 2018-11-16 12:30 | BI_ITS ---
MAMMOGRAPHY - BILATERAL SCREENING REASON FOR EXAM: Female, 57 years old. Routine annual screening examination. PERTINENT HISTORY: Personal history of breast cancer. Prior left mastectomy. Mother with breast cancer. Aunt with breast cancer. TECHNIQUE: Digital bilateral breast ced (3D mammographic acquisition) in the CC and MLO projections. 2-D mediolateral oblique (MLO) and craniocaudad (CC) views of both breasts were obtained. CAD: Full Field Digital Mammography with Computer Added Detection was performed. COMPARISON: Comparison is made with prior outside examination of May 26, 2017. FINDINGS: Breast Composition: The breasts are heterogeneously dense, which may obscure small masses. There are no dominant masses or suspicious calcifications. Stable appearance of the benign-appearing right axillary lymph nodes. No other significant abnormalities are identified. There has been no significant change since the prior study. BI/SCREEN MAMM (CAD) W/CED BILAT IMPRESSION: Stable bilateral screening mammogram. Yearly follow-up mammogram recommended. (A) ASSESSMENT CATEGORY: BIRADS Category 2: Benign. A letter regarding these results will be sent to the patient by the facility within 30 days. Approximately 10% of breast cancers are not detected by mammography. A normal mammogram should not delay biopsy of a clinically suspicious abnormality. [id number] Electronically Signed: Gene Herron, at 14:19 EDT , Service support ,
== END ==
PROVIDERS: Family Provider Internal Medicine; PCP Internal Medicine; Referring Provider Internal Medicine; Visit Provider Internal Medicine
DX: Z12.31 Encounter for screening mammogram for malignant neoplasm of breast (principal)
CPT/HCPCS: 77063; 77067

== ENCOUNTER → 2018-11-23 11:58 | Outpatient (CLI) | payer OTHER, SELFPAY ==
[2018-11-23 11:01] VITALS: BMI 35.1
[2018-11-25 12:23] LABS: HPV APTIMA, High Risk Negative (Negative)
== END ==
PROVIDERS: Family Provider Internal Medicine; PCP Internal Medicine; Visit Provider Nurse Practitioner Women's Health
DX: Z12.4 Encounter for screening for malignant neoplasm of cervix (principal)
CPT/HCPCS: 87624; 88175; G0145

== ENCOUNTER → 2018-12-02 11:52 | Outpatient (CLI) | payer OTHER, SELFPAY ==
[2018-11-23 11:01] VITALS: BMI 35.1
[2018-11-30 10:43] VITALS: BMI 35.1
--- NOTE | 2018-12-02 11:54 | US_ITS ---
HISTORY: Irregular menses. 33 endovaginal images. 42 transabdominal images. No comparison imaging. Findings: Transabdominal imaging: The urinary bladder is mostly decompressed. The uterus measures 11.3 x 5.6 x 6.6 cm. Transabdominally the endometrial stripe is measured at 5 mm. Myometrium is slightly heterogeneous. There are no large masses or fluid collections. The left ovary is suggested at 1.9 x 3.8 x 1.6 cm. Color Doppler imaging is nondiagnostic for flow within left ovarian parenchyma transabdominally. Pulse-wave Doppler imaging suggests probable flow. The left ovary is not identified. Endovaginal imaging: Adnexal vessels appear prominent suggesting multiparity. Heterogeneous uterine echotexture is again perceived. Endovaginally the endometrial stripe is measured at 4 mm and homogeneous. The ovaries are not identified. US/Pelvic (Non ) IMPRESSION: No identification of the left ovary. For patient's stated age 58 years the uterus is prominent 11.3 x 6.6 x 5.6 cm. No focal uterine leiomyomata are perceived, however, possibility of adenomyosis is within the differential. at 2325 Reported and signed by: Juan Daniel Helms MD Electronically Signed: Juan Daniel Helms MD at 23:24 EDT Tel , Service support ,
--- NOTE | 2018-12-02 11:54 | US_ITS ---
HISTORY: Irregular menses. 33 endovaginal images. 42 transabdominal images. No comparison imaging. Findings: Transabdominal imaging: The urinary bladder is mostly decompressed. The uterus measures 11.3 x 5.6 x 6.6 cm. Transabdominally the endometrial stripe is measured at 5 mm. Myometrium is slightly heterogeneous. There are no large masses or fluid collections. The left ovary is suggested at 1.9 x 3.8 x 1.6 cm. Color Doppler imaging is nondiagnostic for flow within left ovarian parenchyma transabdominally. Pulse-wave Doppler imaging suggests probable flow. The left ovary is not identified. Endovaginal imaging: Adnexal vessels appear prominent suggesting multiparity. Heterogeneous uterine echotexture is again perceived. Endovaginally the endometrial stripe is measured at 4 mm and homogeneous. The ovaries are not identified. US/Transvaginal Non- IMPRESSION: No identification of the left ovary. For patient's stated age 58 years the uterus is prominent 11.3 x 6.6 x 5.6 cm. No focal uterine leiomyomata are perceived, however, possibility of adenomyosis is within the differential. at 2325 Reported and signed by: Juan Daniel Helms MD Electronically Signed: Juan Daniel Helms MD at 23:24 EDT Tel , Service support ,
== END ==
PROVIDERS: Family Provider Internal Medicine; PCP Internal Medicine; Referring Provider Nurse Practitioner Women's Health; Visit Provider Nurse Practitioner Women's Health
DX: C50.919 Malignant neoplasm of unspecified site of unspecified female breast (principal); Z87.42 Personal history of other diseases of the female genital tract; Z92.21 Personal history of antineoplastic chemotherapy
CPT/HCPCS: 76830; 76856

== ENCOUNTER → 2018-12-13 13:09 | Outpatient (CLI) | payer OTHER, SELFPAY ==
[2018-12-13 10:45] VITALS: BMI 35.0
--- NOTE | 2018-12-13 11:20 | EMB_PTH ---
PATIENT: HUMBERTO SEN LOC: [facility] U#:[id number] AGE/SX: 64/F ROOM: RE12/13/[address]: NIKIA Tolliver : 1960 BED: DIS: SPEC #: [id number] RECD: 12/13/18 12:05 STATUS: MARCO A PAIGE #: [id number] SHANIQUA: 12/13/18 11:[address]: Munira Bonilla NP DEPT: SURGICAL PATHOLOGY RECD BY: Tigist Hutchinson ENTERED: 12/13/18 14:13 SP TYPE: ENDOM BX/C JUANITA DR: Dr. Vivi Self MD Tissues: Endometrium, NOS Procedures: Surgery Specimen Level IV HEADER OPERATION: Endometrial biopsy PRE-OP DIAGNOSIS: Abnormal uterine bleeding TISSUE SUBMITTED: Endometrial lining MICROSCOPIC DIAGNOSIS Endometrial lining, biopsy: Strips of benign superficial endometrium. Rare fragments of benign superficial squamous mucosa. AM:marleny 12/14/18 MICROSCOPIC DESCRIPTION Slides are reviewed. GROSS DESCRIPTION Received is one container labeled with the patient's name and not further designated. The specimen consists of multiple fragments of hemorrhagic soft tissue that in aggregate measure 2.5 x 1 x 0.2 cm. The entire specimen is submitted in one cassette. / SJ:marleny 12/13/18 TC:5 CPT: 29202
== END ==
PROVIDERS: Family Provider Internal Medicine; PCP Internal Medicine; Referring Provider Nurse Practitioner Women's Health; Visit Provider Nurse Practitioner Women's Health
DX: N93.9 Abnormal uterine and vaginal bleeding, unspecified (principal)
CPT/HCPCS: 88305

== ENCOUNTER → 2019-01-14 10:01 | Outpatient (CLI) | payer OTHER, SELFPAY ==
[2019-01-10 12:59] VITALS: BMI 34.4
--- NOTE | 2019-01-14 10:02 | NM_ITS ---
CLINICAL: 58-year-old female with reported history of primary breast carcinoma. WHOLE BODY 99m Tc MDP RADIONUCLIDE BONE SCINTIGRAPHY COMPARISON: None available FINDINGS: Following the intravenous administration of 24.6 mCi of 99m Tc MDP, whole body bone images reveal: 1. Increased radiopharmaceutical concentration is identified in the lower cervical spine posteriorly on the left and right, second-third, sixth, eighth-ninth thoracic vertebra posteriorly on the left and right, fourth-fifth lumbar vertebra posteriorly on the right-left, the left hip involving the inferior acetabulum, bilateral knees, both ankles, the midfoot and forefoot bilaterally. 2. The remaining skeletal structures are scintigraphically unremarkable with normal-appearing renal images and urinary bladder activity identified. An increase in tracer concentration is identified in the greater trochanteric aspect of the bilateral proximal femurs most consistent with periostitis and/or trochanteric bursitis. NM/Bone Scan Whole Body IMPRESSION: 1. The increase in radiopharmaceutical concentration identified in the cervical, thoracic and lumbar spine, left hip, both knees, right and left ankles, midfoot and forefoot bilaterally is most consistent with degenerative arthritis. 2. There is no definitive typical scintigraphic evidence of diffuse axial skeletal metastatic disease on the current examination. Electronically Signed: Aldair Bunch DO at 12:11 EST Tel , Service support ,
== END ==
PROVIDERS: Family Provider Internal Medicine; PCP Internal Medicine; Referring Provider Internal Medicine Medical Oncology; Visit Provider Internal Medicine Medical Oncology
DX: D64.9 Anemia, unspecified (principal); R53.83 Other fatigue; Z85.3 Personal history of malignant neoplasm of breast
CPT/HCPCS: 78306

== ENCOUNTER → 2019-08-10 15:13 | Outpatient (CLI) | payer OTHER, SELFPAY ==
[2019-06-16 15:46] VITALS: BMI 34.2
[2019-08-10 16:16] LABS: Anion Gap 6 (5-15); BUN 22 mg/dL (7-18); BUN/Creat Ratio 19.8 RATIO (10-20); Calcium,Total 9.8 mg/dL (8.5-10.1); Chloride 103 mmol/L (98-107); Creatinine, Serum 1.11 mg/dL (0.55-1.02); EST Glomerular Filtration Rate 54 mL/min (>60); Est Glom Filt Rate - Afr Amer 65 mL/min (>60); Glucose 107 mg/dL (74-106); Potassium 4.5 mmol/L (3.5-5.1); Sodium Level 140 mmol/L (136-145)
== END ==
PROVIDERS: PCP Internal Medicine; Referring Provider Internal Medicine; Visit Provider Internal Medicine
DX: I10 Essential (primary) hypertension (principal)
CPT/HCPCS: 80048

== ENCOUNTER → 2019-12-07 16:12 | Outpatient (CLI) | payer OTHER, SELFPAY ==
[2019-09-22 17:44] VITALS: BMI 34.7
[2019-12-07 17:02] LABS: Anion Gap 5 (5-15); BUN 19 mg/dL (7-18); BUN/Creat Ratio 17.4 RATIO (10-20); Calcium,Total 9.3 mg/dL (8.5-10.1); Chloride 102 mmol/L (98-107); Creatinine, Serum 1.09 mg/dL (0.55-1.02); EST Glomerular Filtration Rate 55 mL/min (>60); Est Glom Filt Rate - Afr Amer 66 mL/min (>60); Glucose 86 mg/dL (74-106); Potassium 4.4 mmol/L (3.5-5.1); Sodium Level 139 mmol/L (136-145)
== END ==
PROVIDERS: PCP Internal Medicine; Referring Provider Internal Medicine; Visit Provider Internal Medicine
DX: I10 Essential (primary) hypertension (principal)
CPT/HCPCS: 36415; 80048

== ENCOUNTER → 2020-02-24 14:08 | Outpatient (CLI) | payer OTHER, SELFPAY ==
[2020-02-20 13:57] VITALS: BMI 34.5
--- NOTE | 2020-02-24 14:10 | BI_ITS ---
MAMMOGRAPHY - UNILATERAL SCREENING: RIGHT BREAST REASON FOR EXAM: Female, 59 years old. Routine annual screening examination (unilateral). PERTINENT HISTORY: Personal history of breast cancer. Prior left lumpectomy. Mother with breast cancer. Grandmother with breast cancer. Aunt with breast cancer. Prior right breast reduction surgery. TECHNIQUE: Digital unilateral breast ced (3D mammographic acquisition) in the CC and MLO projections. 2-D mediolateral oblique (MLO) and craniocaudad (CC) views of both breasts were obtained. CAD: Full Field Digital Mammography with Computer Added Detection was performed. COMPARISON: Comparison is made with prior study 11/16/2018. FINDINGS: Breast Composition: The breasts are heterogeneously dense, which may obscure small masses. There are no dominant masses or suspicious calcifications. Stable small benign-appearing right axillary lymph nodes. No other significant abnormalities are identified. There has been no significant change since the prior study. BI/SCREEN MAMM (CAD) W/CED UNI R IMPRESSION: Stable unilateral screening mammogram. Yearly follow-up mammogram recommended. (A) ASSESSMENT CATEGORY: BIRADS Category 2: Benign. A letter regarding these results will be sent to the patient by the facility within 30 days. Approximately 10% of breast cancers are not detected by mammography. A normal mammogram should not delay biopsy of a clinically suspicious abnormality. [id number] Electronically Signed: Gene Herron, at 15:06 EST , Service support ,
--- NOTE | 2020-02-24 14:10 | US_ITS ---
STUDY: ULTRASOUND BREAST - LEFT REASON FOR EXAM: Female, 59 years old. Superficial lesion involving the left mastectomy site. TECHNIQUE: Axial and longitudinal images of the LEFT breast were performed with a high resolution ultrasound transducer. # OF IMAGES: 45 COMPARISON: Comparison is made with prior mammogram from the nipple and today. FINDINGS: LEFT Breast: The patient is status post left mastectomy and TRAM flap reconstruction. There is a 6 mm x 6 mm x 6 mm skin lesion at the 9 o''clock position of the breast at 3 cm from the nipple. This may represent an infected sebaceous cyst. US/Breast Limited Unilateral IMPRESSION: Findings suggestive of a small infected sebaceous cyst. ASSESSMENT CATEGORY: BIRADS Category 2: Benign. A letter regarding these results will be sent to the patient by the facility within 30 days. Electronically Signed: Gene Herron, at 15:13 EST , Service support ,
== END ==
PROVIDERS: PCP Internal Medicine; Visit Provider Obstetrics & Gynecology
DX: Z12.31 Encounter for screening mammogram for malignant neoplasm of breast (principal); R22.2 Localized swelling, mass and lump, trunk
CPT/HCPCS: 76642; 77063; 77067

== ENCOUNTER → 2020-02-29 15:09 | Outpatient (CLI) | payer OTHER, SELFPAY ==
[2019-12-07 17:00] VITALS: BMI 35.4
[2020-02-20 13:57] VITALS: BMI 34.5
--- NOTE | 2020-02-29 15:12 | ECHOCS_ITS ---
Reason For Study: CHF Procedure This was a limited 2D transthoracic echocardiogram. The study was technically difficult. Contrast injection was performed. Exam performed in department. Left Ventricle Normal LV size. Left ventricular systolic function is normal. The estimated ejection fraction is 55 %. No regional wall motion abnormalities noted. Right Ventricle Normal RV size. Normal systolic function. Atria Normal left atrium. Normal right atrium. Mitral Valve Mitral valve not well visualized. Tricuspid Valve Normal tricuspid valve. Aortic Valve The aortic valve is not well visualized. Pulmonic Valve The pulmonic valve is not well visualized. Great Vessels Normal aortic root. The pulmonary artery is normal size. Normal inferior vena cava. Pericardium/Pleural No pericardial effusion. Medication 22 gauge I.V. with prn adaptor inserted into right arm. Diluted definity 6.0ml given slow IV push to enhance endocardial definition. MMode/2D Measurements & Calculations LVIDd: 4.1 cm IVSd: 1.0 cm LAV(MOD-bp): 32.8 ml LVIDs: 3.3 cm LVPWd: 1.1 cm FS: 19.4 % LAV(MOD-bp) Indexed: 17.1 ml/m2 LAV(MOD-sp2): 27.7 ml LAV(MOD-sp4): 34.6 ml SV(MOD-sp4): 36.1 ml SV(sp4-el): 39.7 ml LVAd ap4: 25.2 cm2 EDV(MOD-sp4): 71.6 ml EDV(sp4-el): 74.4 ml LVAs ap4: 16.6 cm2 ESV(MOD-sp4): 35.5 ml ESV(sp4-el): 34.7 ml EF(MOD-sp4): 50.5 % EF(sp4-el): 53.3 % LA A4 area: 15.0 cm2 RA A4 area: 13.9 cm2 Interpretation Summary Normal LV size. Left ventricular systolic function is normal. The estimated ejection fraction is 55 %. Contrast injection was performed. The study was technically difficult. Ordering Physician: Artie Fulton Referring Physician: Vivi Self Performed By: Melinda Hannon, YULI, RVT
== END ==
PROVIDERS: PCP Internal Medicine; Referring Provider Nurse Practitioner Family; Visit Provider Nurse Practitioner Family
DX: I42.8 Other cardiomyopathies (principal); Z85.3 Personal history of malignant neoplasm of breast
CPT/HCPCS: 93306; Q9957; A4216; C8929

== ENCOUNTER → 2020-12-06 15:42 | Outpatient (CLI) | payer OTHER, SELFPAY ==
[2020-12-06 16:17] LABS: ALB/GLOB Ratio 1.1 RATIO (0.9-2.4); AST(SGOT) 18 U/L (15-37); Alanine Aminotransfer ALT/SGPT 28 U/L (13-56); Albumin, Serum 3.7 g/dL (3.2-5.0); Alkaline Phosphatase 95 U/L (45-117); Anion Gap 5 (5-15); BUN 14 mg/dL (7-18); BUN/Creat Ratio 15.1 RATIO (10-20); Chloride 103 mmol/L (98-107); Cholesterol 227 mg/dL (200); Creatinine, Serum 0.93 mg/dL (0.55-1.02); EST Glomerular Filtration Rate 66 mL/min (>60); Est Glom Filt Rate - Afr Amer 79 mL/min (>60); Globulin 3.5 g/dL (2.2-4.2); Glucose 73 mg/dL (74-106); High Density Lipoprotein 38 mg/dL; Potassium 4.1 mmol/L (3.5-5.1); Protein, Total 7.2 g/dL (6.4-8.2); Sodium Level 140 mmol/L (136-145); Triglycerides 522 mg/dL
== END ==
PROVIDERS: PCP Internal Medicine; Referring Provider Internal Medicine; Visit Provider Internal Medicine
DX: I10 Essential (primary) hypertension (principal)
CPT/HCPCS: 36415; 80053; 80061

== ENCOUNTER 2021-05-28 17:00 | Outpatient (CLI) | payer OTHER, SELFPAY ==
--- NOTE | 2021-05-28 16:21 | BI_ITS ---
MAMMOGRAPHY - UNILATERAL SCREENING: RIGHT BREAST REASON FOR EXAM: Female, 60 years old. Routine annual screening examination (unilateral). PERTINENT HISTORY: Personal history of breast cancer. Prior left mastectomy. Mother with breast cancer. Grandmother with breast cancer. Aunt with breast cancer. TECHNIQUE: Digital unilateral breast ced (3D mammographic acquisition) in the CC and MLO projections. 2-D mediolateral oblique (MLO) and craniocaudad (CC) views of both breasts were obtained. CAD: Full Field Digital Mammography with Computer Added Detection was performed. COMPARISON: Comparison is made with prior study dated 02/24/2020 and 11/16/2018. FINDINGS: Breast Composition: The breasts are heterogeneously dense, which may obscure small masses. There are no dominant masses or suspicious calcifications. There is a 5.4 mm x 5 mm densely calcified nodule in the deep inferior medial aspect of the right breast. This most likely represents a calcifying fibroadenoma. Stable small benign-appearing right axillary lymph nodes. No other significant abnormalities are identified. BI/SCREEN MAMM (CAD) W/CED UNI R IMPRESSION: Stable unilateral screening mammogram. Yearly follow-up mammogram recommended. (A) ASSESSMENT CATEGORY: BIRADS Category 2: Benign. A letter regarding these results will be sent to the patient by the facility within 30 days. Approximately 10% of breast cancers are not detected by mammography. A normal mammogram should not delay biopsy of a clinically suspicious abnormality. [id number] Electronically Signed: Gene Herron MD at 8:26 EDT ,
== END 2021-05-28 23:59 | disposition home or self-care (01) ==
PROVIDERS: PCP Internal Medicine; Referring Provider Obstetrics & Gynecology; Visit Provider Obstetrics & Gynecology
DX: Z12.31 Encounter for screening mammogram for malignant neoplasm of breast (principal); N63.11 Unspecified lump in the right breast, upper outer quadrant
CPT/HCPCS: 77063; 77067

== ENCOUNTER → 2021-08-15 | Outpatient (CLI) | payer OTHER, MEDICAID, SELFPAY ==
[2021-08-21 13:26] LABS: HPV APTIMA, High Risk Negative (Negative)
== END | disposition home or self-care (01) ==
LOC: LABSPEC 16:33
PROVIDERS: PCP Internal Medicine; Visit Provider Obstetrics & Gynecology
DX: Z01.419 Encounter for gynecological examination (general) (routine) without abnormal findings (principal); N89.8 Other specified noninflammatory disorders of vagina
CPT/HCPCS: 87070; 87205; 87624; 88175; G0145

== ENCOUNTER → 2021-10-29 | Outpatient (CLI) | payer OTHER, SELFPAY ==
--- NOTE | 2021-10-29 15:30 | RAD_ITS ---
INDICATION: Left Hip Pain EXAMINATION/TECHNIQUE: X-RAY - XR Hip Unilateral with Pelvis when performed; 2-3 Views: AP view pelvis with AP and lateral views of left hip COMPARISON: None. FINDINGS: PELVIC BONES: No displaced fracture or suspicious osseous lesion demonstrated. Note that overlapping bowel shadows may however obscure fine detail. Sacroiliac joints are unremarkable. No widening of the pubic symphysis. HIPS: Symmetric and adequately aligned bilateral hips with preserved joint spaces. No hip fracture, dislocation or suspicious osseous lesion. SOFT TISSUES: No soft tissue swelling or gas. RAD/HIP, UNI W/ Pelvis 2-3 Views IMPRESSION: Pelvis and hips with no significant abnormality. Electronically Signed: Palmer Salter MD at 3:15 EDT ,
== END | disposition home or self-care (01) ==
LOC: RAD 15:28
PROVIDERS: PCP Internal Medicine; Referring Provider Internal Medicine; Visit Provider Internal Medicine
DX: M25.552 Pain in left hip (principal)
CPT/HCPCS: 73502

== ENCOUNTER 2021-12-27 15:30 | Outpatient (RCR) | payer OTHER, MEDICAID, SELFPAY ==
--- NOTE | 2021-11-18 18:00 | HP.PTEVAL_ITS ---
Patient's Visit Information HUMBERTO SEN is a 60 year old F referred to Physical Therapy by Dr. Vivi Self MD with a diagnosis of LOW BACK AND L HIP PAIN. Date of Evaluation: 11/18/21 Physical Therapist: Gloria Fernandez PT, Cert MDT - Visit Plan Frequency: 2-3x /Week Duration: 4-6 Weeks Plan: *CHECK AUTH: RECORD # OF VISITS APPROVED AND EXPIRATION DATE. CHECK CODES APPROVED WITH POC*. AQUATIC THERAPY FOR LOW BACK AND L HIP/LE PAIN,. POSTURE CORRECTION/STRENGTHENING, INSTRUCTION IN APPROPRIATE BODY MECHANICS AND ACTIVITY MODIFICATIONS. DLS STARTING WITH A NEUTRAL SPINE PROGRESSING ROM TOLERATED. KAT LE ROM, STRETCHING AND STRENGTHENING. HEP INSTRUCTION. - Subjective Work/Leisure: UNEMPLOYEED SINCE 2014. TAKES CARE OF 2 YEAR OLD GRANDSON ABOUT 8 HOURS A DAY 5 DAYS A WEEK. Disability: NO. Present symptoms: LOW BACK PAIN AND LEFT HIP PAIN. L THIGH PAIN AND CRAMPING. DENIES KAT LE NUMBNESS AND TINGLING. Present since: ABOUT 4 MONTHS AGO. CHIEF COMPLAINT IS L HIP PAIN. PAIN USE TO GO ALL THE WAY DOWN HER LEG TO HER TOES BUT NOW JUST TO KNEE. Pain Scale: WORST 6/10, LEAST 2/10. Currently: 4/10 - OVERALL PATIENT REPORTS SHE IS NOT GETTING WORSE AND NOT GETTING BETTER AT THIS POINT. Commenced as a result of: I WAS TRYING TO DO CRUNCHES. Symptoms at onset: LEFT LOW BACK AND HIP PAIN AND PAIN DOWN LEG. HIP HURT THE MOST. NECK HURT THE NEXT DAY TOO. Worse: DOING STUFF LIKE SWEEPING THE FLOOR OR WALKING ANY DISTANCE. CARRYING THINGS. Better: SITTING IN ROCKING CHAIR, [place], HEAT AND COLD. Disturbed sleep: YES. Previous history/Previous treatment: NONE. Treatment this episode: CHIROPRACTOR X 3 - HELPED BUT DIDN'T TAKE IT AWAY. Coughing/sneezing/straining: POSITIVE. Gait: TIME AND DISTANCE LIMITED. INTERMITTENT L LE LIMP. BACK SAGS SOMETIMES NOW. NO ASSISTIVE DEVICE USE. Bowel or Bladder Dysfunction: STRESS INCONTINENCE. Accidents: NO. Unexplained weight loss: NO. Imaging: L HIP X-RAY - NORMAL. PMH/Recent major surgery: FIBROMYALGIA, DEPRESSION, INSOMNIA, HTN - Objective Sitting/Standing Posture: RIGHT LATERAL SHIFT BUT ABLE TO CROSS MIDLINE TO THE LEFT. Active Correction of posture: WORSE. Other Observations: INDEP AN TALGIC GAIT PATTERN INTO PT WITHOUT ANY AD'S OR LOB BUT WITH DECREASED CADANCE, DECREASED TRUNK ROTATION AND INCREASED TRUNK FLEXION. MILD LIMP ON LLE. DECREASED KAT STRIDE LENGTH. Sensory deficit: KAT LE LIGHT TOUCH SENSATION IS GROSSLY INTACT AND SYMMETRICAL. ROM deficit: TIGHT KAT LE HIP FLEXORS, HS'S AND GASTROC SOLEUS COMPLEX'S. Motor deficit: KAT LE'S 5/5 WITH MMT'ING EXCEPT R HIP 4/5 AND LEFT 4-/5. Dural Signs: NEGATIVE KAT LE'S. Lumbar mvmt loss: flex -MOD. ext - NAN. R SG - MOD. L SG - MOD. PATIENT C/O INCREASED LBP WITH LUMBAR ROM TESTING ALL PLANES. Core strength: POOR. Palpation: NO ACUTE LUMBAR OR HIP TENDERNESS. TREATMENT: NEUROMUSCULAR REEDUCATION - RETRAINING OF MVMT AND POSTURE FOR SITTING, LYING AND STANDING ACTIVITIES. - Balance/Special Test Scores Oswestry Low Back Score: 23 - Goals Goal 1:: DECREASE C/O LOW BACK AND L HIP PAIN. Goal Time Frame: 4-6 Weeks Goal 2:: IMPROVE PERSONAL CARE, LIFTING, WALKING, SITTING, STANDING, SLEEP, SOCIAL LIFE, TRAVEL AND HOMEMAKING FUNCTION Goal Time Frame: 4-6 Weeks Goal 3:: INSTRUCT IN PROPHYLAXIS Goal Time Frame: 4-6 Weeks - Anticipated Interventions Patient/Client Instruction: Educate patient on: Condition, Plan of Care, Risk Factors For the Purpose of:: To improve self management Therapeutic Exercise to Include: Strength training, Body mechanics, Postural training, Flexibilty training, Gait and locomotor training, Neuromotor development, In an aquatic setting, Dynamic Lumbar Stabilization For the Purpose of:: To decrease pain, To improve muscle performance and motor function, To increase tolerance to activity/condition/position, To improve ability of physical actions for home/community/work/leisure, To improve gait and locomotor functions Thank you for the opportunity to evaluate your patient. For Medicare and Medicare HMO plans, please review the plan of care and approve it. It will need to be FAXED BACK to us at [phone] for Medicare purposes. For Medicare only, by signing this I certify the plan of care. Please let me know if there are questions or concerns regarding this plan of care. Physician Signature: Date:
--- NOTE | 2021-12-27 15:58 | HP.PTDCSUM ---
It has been my pleasure to treat HUMBERTO SEN referred by Dr. Vivi Self MD, with the diagnosis of LOW BACK AND L HIP PAIN for a total of 9 visit(s). Discharge Date: Please see the following information for a summary of their discharge status. Subjective: PATIENT REPORTS HER LOW BACK PAIN IS BETTER BUT HER HIP PAIN IS THE SAME AND THE PAIN IS STARTING TO RADIATE BELOW HER KNEE AGAIN. LLE Pain Intensity (Out of 10): 3 Lumbar Spine Pain Intensity (Out of 10): 3 Objective/Function: PATIENT WAS SEEN TODAY FOR RE-ASSESSMENT OF PROGRESS TOWARD THE SET PT GOALS AND THE NEED FOR FURTHER PHYSICAL THERAPY VS READINESS FOR DISCHARGE. PATIENT IS NOT IMPROVING AND PHYSICIAN RE-ASSESSMENT IS RECOMMENDED. PATIENT IS AGREEABLE. UPON EXAM TODAY: PATIENT NOW HAS A RELEVENT R LATERAL SHIFT IN THAT SHE IS NOT ABLE TO CROSS MIDLINE TO THE LEFT. SHE WAS SHIFTED AT EVAL BUT ABLE TO CROSS MIDLINE. SHE CONTINUES TO HAVE PERIPHERRALIZATION OF SX'S WITH POSTURE CORRECTION AND IS ONLY ABLE TO PARTIALLY CORRECT. INDEP ANTALGIC GAIT PATTERN INTO PT WITHOUT ANY AD'S OR LOB BUT WITH DECREASED CADANCE, DECREASED TRUNK ROTATION AND INCREASED TRUNK FLEXION. MILD LIMP ON LLE. DECREASED KAT STRIDE LENGTH. SUGGESTED PATIENT CONSIDER CANE TO DECREASE PAIN WALKING. Sensory deficit: KAT LE LIGHT TOUCH SENSATION IS GROSSLY INTACT AND SYMMETRICAL. ROM deficit: TIGHT KAT LE HIP FLEXORS, HS'S AND GASTROC SOLEUS COMPLEX'S. Motor deficit: KAT LE'S 5/5 WITH MMT'ING EXCEPT R HIP 4/5 AND LEFT 4-/5. Dural Signs: NEGATIVE KAT LE'S. Lumbar mvmt loss: flex -MOD. ext - NAN. R SG - MOD. L SG - NAN. PATIENT C/O INCREASED LBP WITH LUMBAR ROM TESTING ALL PLANES ESPECIALLY EXT AND L SG TESTING. Core strength: POOR. Palpation: NO ACUTE LUMBAR OR HIP TENDERNESS. Goal 1:: DECREASE C/O LOW BACK AND L HIP PAIN. Goal Progress: Not Progressing Goal 2:: IMPROVE PERSONAL CARE, LIFTING, WALKING, SITTING, STANDING, SLEEP, SOCIAL LIFE, TRAVEL AND HOMEMAKING FUNCTION Goal Progress: Not Progressing Goal 3:: INSTRUCT IN PROPHYLAXIS Goal Progress: Not Progressing Plan: D/C DUE TO LACK OF PROGRESS. PATIENT AGREEABLE. If there are questions or concerns regarding this patient's physical therapy, please feel free to call me at [phone]. Thank you for the referral of this patient. Sincerely, Gloria Fernandez PT, Cert MDT Balance/Gait/Functional tests - Balance/Special Test Scores Oswestry Low Back Score: 24
== END 2021-12-27 19:00 | disposition home or self-care (01) ==
LOC: PT 15:30
PROVIDERS: PCP Internal Medicine; Referring Provider Internal Medicine; Visit Provider Internal Medicine
DX: M54.50 Low back pain, unspecified (principal); M25.552 Pain in left hip
CPT/HCPCS: 97112; 97113; 97162; 97164

== ENCOUNTER → 2022-02-12 | Outpatient (CLI) | payer MEDICAID, SELFPAY ==
[2022-02-12 15:35] LABS: Absolute Lymphocyte Count 2.28 X10^3/uL (0.83-4.51); Absolute Neutrophil Count 5.7 X10^3/uL (2.0-7.7); Basophil# 0.04 X10^3/uL; Basophil% 0.4 % (0-1); Eosinophils% 2.2 % (0-5); Hematocrit 42.6 % (37-47); Hemoglobin 13.9 g/dL (12.0-15.0); Lymphocyte # 2.28 X10^3/ul (0.83-4.51); Mean Corp Hgb Conc 32.6 g/dL (32-36); Mean Corpuscular Volume 95.1 fL (81-99); Mean Platelet Vol. 9.2 fl (6.2-12.0); Monocyte# 0.81 X10^3/uL; Monocyte% 8.9 % (0-10); NRBC Flagged by Analyzer 0 % (0-5); Neutrophil # 5.73 X10^3/uL (2.7-7.7); Neutrophil % 62.8 % (47-70); Platelet Count 272 K/mm3 (150-450); RBC Distribution Width SD 45.4 fl (35.1-43.9); Red Blood Count 4.48 M/mm3 (4.2-5.4); White Blood Count 9.1 K/mm3 (4.4-11.0)
[2022-02-12 16:24] LABS: ALB/GLOB Ratio 1.2 RATIO (0.9-2.4); AST(SGOT) 13 U/L (15-37); Alanine Aminotransfer ALT/SGPT 27 U/L (13-56); Alkaline Phosphatase 92 U/L (45-117); Anion Gap 7 (5-15); BUN 20 mg/dL (7-18); BUN/Creat Ratio 21.3 RATIO (10-20); Calcium,Total 8.8 mg/dL (8.5-10.1); Chloride 101 mmol/L (98-107); Cholesterol 276 mg/dL (200); Creatinine, Serum 0.94 mg/dL (0.55-1.02); EST Glomerular Filtration Rate 64 mL/min (>60); Est Glom Filt Rate - Afr Amer 78 mL/min (>60); Globulin 3.2 g/dL (2.2-4.2); Glucose 90 mg/dL (74-106); High Density Lipoprotein 44 mg/dL; Potassium 4.2 mmol/L (3.5-5.1); Protein, Total 7.2 g/dL (6.4-8.2); Sodium Level 138 mmol/L (136-145); Triglycerides 474 mg/dL
== END | disposition home or self-care (01) ==
LOC: PAVLAB 15:17
PROVIDERS: PCP Internal Medicine; Referring Provider Internal Medicine; Visit Provider Internal Medicine
DX: I10 Essential (primary) hypertension (principal); E78.5 Hyperlipidemia, unspecified
CPT/HCPCS: 36415; 80053; 80061; 85025

== ENCOUNTER → 2022-02-18 | Outpatient (CLI) | payer MEDICAID, SELFPAY ==
--- NOTE | 2022-02-18 16:55 | MRI_ITS ---
STUDY: MR Spine Lumbar W/O Contrast 02/18/2022 9:35 PM REASON FOR EXAM: Female, 61 years old. Back pain low back pain radiating left leg TECHNIQUE: MR Spine Lumbar W/O Contrast Standardized fat and water weighted pulse sequences were obtained. COMPARISON: None FINDINGS: Normal lumbar lordosis. There is no substantial scoliosis. Normal conus medullaris that terminates at the L1. L1-2: Loss of intervertebral disc height. There is endplate spondylosis of the vertebral body. Normal central canal and intervertebral neuroforamina. There is bilateral facet arthropathy. L2-3: Loss of intervertebral disc height. There is endplate spondylosis of the vertebral body. Normal central canal and intervertebral neuroforamina. There is bilateral facet arthropathy. L3-4: Loss of intervertebral disc height. There is endplate spondylosis of the vertebral body. Normal central canal and intervertebral neuroforamina. There is bilateral facet arthropathy. L4-5: Loss of intervertebral disc height. There is endplate spondylosis of the vertebral body. Mild narrowing of the lateral recess. Bilobed disc herniation extending into the neural foramina causing bilateral neural foraminal stenosis. There is bilateral facet arthropathy. L5-S1: Loss of intervertebral disc height. There is endplate spondylosis of the vertebral body. There is bilateral facet arthropathy. Normal central canal and intervertebral neuroforamina. Posterior disc bulge. Mild discogenic endplate changes. Normal visualized sacral ala. Normal visualized paraspinous soft tissue structures. MRI/Spine Lumbar (Routine) IMPRESSION: Multilevel degenerative changes, as described above. L4-5: Mild narrowing of the lateral recess. Bilobed disc herniation extending into the neural foramina causing bilateral neural foraminal stenosis Electronically Signed: Broderick Jo MD at 21:38 EST ,
== END | disposition home or self-care (01) ==
PROVIDERS: PCP Internal Medicine; Referring Provider Physician Assistant; Visit Provider Physician Assistant
DX: M47.816 Spondylosis without myelopathy or radiculopathy, lumbar region (principal); M79.605 Pain in left leg
CPT/HCPCS: 72148

== ENCOUNTER 2023-01-06 08:52 | Outpatient (CLI) | payer MEDICAID, SELFPAY ==
[2023-01-06 09:02] VITALS: BP 106/51; PULSE 96; RESP 16; TEMP 36.1; O2SAT 96; BMI 37.4
[2023-01-06 09:46] VITALS: BP 93/41; PULSE 84; RESP 16; TEMP 35.9; O2SAT 93
[2023-01-06 10:50] VITALS: BP 105/52; PULSE 83; RESP 16; TEMP 36.3; O2SAT 95
[2023-01-06 11:41] VITALS: BP 94/59; PULSE 81; RESP 16; TEMP 36.2; O2SAT 94
[2023-01-06 12:15] VITALS: BP 94/59; PULSE 81; RESP 16; TEMP 36.2
== END 2023-01-06 08:53 | disposition home or self-care (01) ==
LOC: MEDOUTP 08:53
PROVIDERS: PCP Internal Medicine; Referring Provider Specialist; Visit Provider Specialist
DX: D64.81 Anemia due to antineoplastic chemotherapy (principal); C50.912 Malignant neoplasm of unspecified site of left female breast
CPT/HCPCS: 36430; 86850; 86900; 86901; 86920; 86922; J7040; P9016; A4216

== ENCOUNTER 2023-03-13 12:03 | Emergency (ER) | payer MEDICAID, SELFPAY ==
[2023-03-13] VITALS (9 sets, daily range): BP systolic 99–125; BP diastolic 60–80; PULSE 89–101; RESP 13–23; TEMP 35.9; O2SAT 83–98; BMI 35.6
--- NOTE | 2023-03-13 12:46 | CT_ITS ---
STUDY: CTA CHEST REASON FOR EXAM: Female, 62 years old. Hypoxia pulmonary embolism. History of recent bilateral mastectomy. RADIATION DOSAGE (If Supplied By Facility): CTDIvol = ( 9.53 ) mGy, DLP = ( 480.70 ) mGycm TECHNIQUE: The examination was performed with the intravenous administration of IV 100mL Isovue-370. Post-processing of the angiographic images was performed, with multiplanar reformation and 3D reconstruction. Individualized dose optimization techniques were used for this CT. COMPARISON: Comparison is made with prior study of October 27, 2018. FINDINGS: A right-sided portacatheter is seen with the tip in the superior vena cava. The patient is status post bilateral mastectomy. Normal enhancement of the main pulmonary artery and right and left pulmonary arteries. Normal enhancement of the bilateral peripheral pulmonary arteries. There is no demonstrated pulmonary embolism. Normal thoracic aorta and visualized great vessels. There is no demonstrated aortic dissection. Normal heart and pericardium. Normal mediastinum. Normal hilar regions. Normal visualized trachea and bronchi. The lungs are well expanded. Evidence of small bilateral pleural effusions with bibasilar atelectasis more prominent at the left lung base. Normal chest wall structures. There are degenerative changes of thoracic spine. There is a 1.4 cm x 1.5 cm cyst in the anterior aspect of the left lobe of the liver. This is unchanged. Small hiatal hernia. CT/CTA Chest W/WO Contrast IMPRESSION: No evidence of pulmonary embolism. Small bilateral pleural effusions with bibasilar atelectasis more prominent at the left lung base. Status post bilateral mastectomy. Electronically Signed: Gene Herron MD at 14:48 EST ,
--- NOTE | 2023-03-13 12:59 | EX.ED.DYSGE1 ---
HPI History of Present Illness Chief Complaint: Shortness of Breath Informant: patient and spouse/S.O. Narrative Narrative: 62-year-old female history of breast cancer presenting to the emergency department with a chief complaint of hypoxia. Patient is currently undergoing treatments with [facility] locally and Dr. Schmitz. It was reported that her last chemotherapy was 1 month ago. The patient states that on Thursday she had bilateral mastectomy at [facility] with Dr. Magaña. She states that she stayed the night and yesterday was discharged from the hospital. She has bilateral grenade's. She states that the right has been draining significantly more than the left. However they have only had emptied a couple times. She states that yesterday it was noted that her oxygen level was in the 80s and they placed her on supplemental oxygen. However she states they weaned her off and she was discharged home. Today she went to see her oncologist and her oxygen level was again into the 80s and at 1 point dipped into the 70s. She does not have any chest pain. She does not feel dyspneic. She denies any fevers she states that she has had a chronic cough which is essentially unchanged. One of her chemotherapy medications has been Herceptin. They have been monitoring her heart and her last echocardiogram on 22 January 2023 showed a 49% ejection fraction which is essentially no change from baseline. She denies any significant swelling of the legs. She reports a personal history of prior pulmonary embolism in 2016 and associated with DVT of the lower extremity. [facility] Medical History Acute back pain Acute systolic (congestive) heart failure (10/2018) Anemia Anemia, unspecified Anxiety and depression Body aches Breast cancer Change in skin mole Chronic systolic (congestive) heart failure CKD (chronic kidney disease), stage III Colon cancer screening Depression DJD (degenerative joint disease) Enlarged uterus Essential (primary) hypertension Fibromyalgia Flu vaccine need History of breast cancer History of DVT of lower extremity (2017) History of pulmonary embolus (PE) (2017) Hyperlipidemia Hypogammaglobulinaemia, unspecified Left hip pain Low back pain Lumbar radiculopathy Nodule of left anterior chest wall Non-ischemic cardiomyopathy Obesity Personal history of tamoxifen therapy Pneumonia Postmenopausal bleeding Respiratory failure with hypoxia Sleep-disordered breathing Home Medications acetaminophen 500 mg tablet 1,000 mg PO TID PRN PRN Pain 10/26/18 [History Last Taken 10/24/18] albuterol sulfate 90 mcg/actuation aerosol inhaler 2 puff inhalation Q6H PRN shortness of breath or wheezing #8.5 grams 11/30/18 [Rx Last Taken Unknown] bupropion HCl 150 mg 24 hr tablet, extended release 150 mg PO DAILY depression #90 tabs 05/17/21 [Rx Last Taken Unknown] ibuprofen 600 mg tablet 600 mg PO Q8H PRN fever or pain 06/12/21 [History Last Taken Unknown] carvedilol 6.25 mg tablet 6.25 mg PO BID #180 tabs 02/13/22 [Rx Last Taken Unknown] duloxetine 30 mg capsule,delayed release 30 mg PO BID #180 caps 02/13/22 [Rx Last Taken Unknown] gabapentin 300 mg capsule 300 mg PO .COMPLEX nerve pain #150 caps 02/13/22 [Rx Last Taken Unknown] gemfibrozil 600 mg tablet 600 mg PO BID #60 tabs 02/13/22 [Rx Last Taken Unknown] losartan 100 mg tablet 100 mg PO DAILY #90 tabs 02/13/22 [Rx Last Taken Unknown] omeprazole 20 mg capsule,delayed release 20 mg PO DAILY #90 caps 02/13/22 [Rx Last Taken Unknown] trazodone 100 mg tablet 200 mg (2 x 100 mg) PO QHS PRN sleep #180 tabs 11/12/22 [Rx Last Taken Unknown] furosemide 40 mg tablet (Lasix) 40 mg PO DAILY #5 tabs 03/13/23 [Rx Last Taken Unknown] potassium chloride 20 mEq tablet,extended release 40 meq (2 x 20 mEq) PO DAILY 5 days #10 tabs 03/13/23 [Rx Last Taken Unknown] Allergy/AdvReac Type Severity Reaction Status Date / Time tamoxifen Allergy PE/DVT's Verified 02/13/22 13:11 Family History Father Alcoholism Bladder cancer COPD (chronic obstructive pulmonary disease) Mother Breast cancer Hypertension Asthma Sister Heart disease Grandfather Myocardial infarction Grandfather Myocardial infarction Grandmother CVA (cerebral vascular accident) Grandmother Breast cancer Heart disease CHF (congestive heart failure) Surgical History History of cone biopsy of uterine cervix History of left heart catheterization (11/11/18) History of left mastectomy History of reconstruction of left breast History of tonsillectomy and adenoidectomy Hx of colonoscopy Social History Smoking Status: Unknown if ever smoked second hand exposure: No alcohol intake: never substance use type: does not use caffeine: Yes what type of physical activity do you participate in: none frequency: does not exercise seatbelt use: always do you feel safe at home: Yes additional social history: El- retired Patient is retired ROS ROS ED Constitutional Constitutional ED: Denies chills, fever(s) or weight loss Eyes Eyes: Denies change in vision or diplopia ENT ENT ED: Denies ear pain, rhinorrhea or sore throat Cardiovascular Cardiovascular: Denies chest pain, orthopnea, palpitations or racing heartbeat Respiratory/Chest Respiratory/Chest: Reports cough and other Details: Postop day 2 bilateral mastectomy. [address] with right greater than left fluid collected serosanguineous fluid. ; Denies dyspnea, dyspnea on exertion or orthopnea Gastrointestinal Gastrointestinal: Denies abdominal pain, diarrhea, nausea or vomiting Genitourinary Genitourinary ED: Denies dysuria, hematuria or urinary frequency Musculoskeletal Musculoskeletal: Denies arthralgias or myalgias Integumentary Denies abscess or rash Neurologic Neurologic: Denies headache(s) or weakness Psychiatric Psychiatric: Denies anxiety, depression, suicidal ideation or suicidal thoughts Endocrine Endocrinology: Denies polydipsia, polyphagia or polyuria Allergic/Immunologic Allergic/Immunologic ED: Denies mouth swelling, tongue swelling or urticaria EXAM Physical Exam Const Vital Signs: 03/13/23 12:03 03/13/23 12:05 03/13/23 12:19 Temperature 96.7 F L 96.7 F L Temperature Source Temporal Temporal Pulse Rate 101 H 95 Respiratory Rate 22 H 16 Respiratory Effort Short of Breath Respiratory Pattern Normal Blood Pressure 107/60 122/70 H Blood Pressure Mean 75 87 Pulse Ox 98 95 Pulse Ox [At REST on Room Air] Pulse Ox [At REST with Oxygen] Oxygen Delivery Method Nasal Cannula Nasal Cannula Nasal Cannula Oxygen Flow Rate (L/min) 2 Oxygen Flow Rate (L/min) [At REST with Oxygen] 03/13/23 13:50 03/13/23 13:53 03/13/23 14:55 Temperature Temperature Source Pulse Rate 90 89 Respiratory Rate 23 H 13 Respiratory Effort Respiratory Pattern Blood Pressure 120/80 125/61 H Blood Pressure Mean 93 82 Pulse Ox 92 97 Pulse Ox [At REST on Room Air] Pulse Ox [At REST with Oxygen] Oxygen Delivery Method Nasal Cannula Nasal Cannula Nasal Cannula Oxygen Flow Rate (L/min) Oxygen Flow Rate (L/min) [At REST with Oxygen] 03/13/23 15:36 03/13/23 16:06 Temperature Temperature Source Pulse Rate 91 Respiratory Rate 16 Respiratory Effort Respiratory Pattern Blood Pressure 99/78 Blood Pressure Mean 85 Pulse Ox 97 Pulse Ox [At REST on Room Air] 83 Pulse Ox [At REST with Oxygen] 98 Oxygen Delivery Method Nasal Cannula Oxygen Flow Rate (L/min) 2 Oxygen Flow Rate (L/min) [At REST with Oxygen] 2 MDM MDM MDM Narrative Medical decision making narrative: Blood work shows a white count of 9 hemoglobin 7.6 which the patient has had recent anemia. Creatinine 0.76. Her BNP is 64 troponin 176. EKG is nonischemic and shows a normal sinus rhythm at a ventricular rate of 94. CTA of the chest demonstrates no pulmonary embolism. There are bilateral pleural effusions with bibasilar atelectasis. She does have a history of heart failure with preserved ejection fraction. She does drop into the mid 80s about 86 when I watched the monitor and we conversed. Difficult to say if the pleural effusions are from the surgery or oncologic in nature versus other cause. There is certainly could be a degree of atelectasis due to the surgery and the Yifan wrap's and being more bedbound. Talk with the patient regarding admission. Using shared decision making we came up with the following. If we are unable to get her home oxygen plan will be admission for some diuresis and see if we get her home oxygen if needed tomorrow. If we can get her set up for home oxygen tonight I will write for some Lasix. Will also will need to replace some potassium as she is starting here at 3.2. I spoke with her oncologist. Her is in the room for the conversation and agrees with the above plan. I do they feel that the patient would benefit from home/portable oxygen. She is an ambulatory patient and has regular doctors appointments. She is 86% at rest on home oxygen. Lab Data Labs: Laboratory Results - last 24 hr 03/13/23 13:25 WBC 9.0 RBC 2.23 L Hgb 7.6 L Hct 24.8 L MCV 111.2 H MCH 34.1 H MCHC 30.6 L RDW Std Deviation 67.6 H RDW Coeff of Rhys 16.5 H Plt Count 130 L MPV 9.4 Immature Gran % (Auto) 0.400 Neut % (Auto) 65.9 Lymph % (Auto) 20.5 [place] % (Auto) 12.6 H Eos % (Auto) 0.4 Baso % (Auto) 0.2 Absolute Neuts (auto) 5.9 Absolute Lymphs (auto) 1.84 Nucleated RBC % 0 Anisocytosis 1+ Sodium 136 Potassium 3.2 L Chloride 103 Carbon Dioxide 31.0 Anion Gap 2 L BUN 9 Creatinine 0.76 Estim Creat Clear Calc 79.27 Est GFR (MDRD) Af Amer 99 Est GFR (MDRD) Non-Af 82 BUN/Creatinine Ratio 11.8 Glucose 80 Calcium 8.3 L Total Bilirubin 0.30 Direct Bilirubin 0.10 AST 9 L ALT 14 Alkaline Phosphatase 68 Troponin I High Sens 76 H B-Natriuretic Peptide 64.1 Total Protein 5.9 L Albumin 2.8 L Globulin 3.1 Radiography Diagnostic Testing: Clinical Impression(s) from Imaging Studies Chest CTA 03/13/23 12:46 IMPRESSION: No evidence of pulmonary embolism. Small bilateral pleural effusions with bibasilar atelectasis more prominent at the left lung base. Status post bilateral mastectomy. Electronically Signed: Gene Herron MD at 14:48 EST , Discharge Plan Triage Chief Complaint: Shortness of Breath ED Provider: Rhett Jo Dx/Rx/DC Orders Clinical Impression: Acute hypokalemia, Breast cancer, Hypoxia, Status post mastectomy, Pleural effusion, bilateral Instructions: ED Hypokalemia, ED Pleural Effusion Prescriptions: New potassium chloride 20 mEq tablet extended release 40 meq PO DAILY 5 Days Qty: 10 0RF furosemide [Lasix] 40 mg tablet 40 mg PO DAILY Qty: 5 0RF No Action albuterol sulfate 90 mcg/actuation HFA aerosol inhaler 2 puff INHALATION Q6H PRN (Reason: shortness of breath or wheezing) Qty: 8.5 2RF ibuprofen 600 mg tablet 600 mg PO Q8H PRN (Reason: fever or pain) gemfibrozil 600 mg tablet 600 mg PO BID Qty: 60 2RF losartan 100 mg tablet 100 mg PO DAILY Qty: 90 3RF carvedilol 6.25 mg tablet 6.25 mg PO BID Qty: 180 3RF duloxetine 30 mg capsule,delayed release(DR/EC) 30 mg PO BID Qty: 180 1RF gabapentin 300 mg capsule 300 mg PO .COMPLEX Qty: 150 1RF Rx Instructions: 300 mg PO bid, 3 Caps @ HS; omeprazole 20 mg capsule,delayed release(DR/EC) 20 mg PO DAILY Qty: 90 3RF acetaminophen 500 MG tablet 1,000 mg PO TID PRN PRN (Reason: Pain) bupropion HCl 150 mg tablet extended release 24 hr 150 mg PO DAILY Qty: 90 3RF trazodone 100 mg tablet 200 mg PO QHS PRN (Reason: sleep) Qty: 180 0RF Primary Care Provider: Val Tamez Referrals: Val Tamez DO [Primary Care Provider] -
[2023-03-13 13:37] LABS: Absolute Lymphocyte Count 1.84 X10^3/uL (0.83-4.51); Absolute Neutrophil Count 5.9 X10^3/uL (2.0-7.7); Basophil# 0.02 X10^3/uL; Basophil% 0.2 % (0-1); Eosinophil# 0.04 X10^3/uL; Eosinophils% 0.4 % (0-5); Hematocrit 24.8 % (37-47); Hemoglobin 7.6 g/dL (12.0-15.0); Lymphocyte # 1.84 X10^3/ul (0.83-4.51); Lymphocyte % 20.5 % (19-41); Mean Corp Hgb Conc 30.6 g/dL (32-36); Mean Corpuscular Hgb 34.1 pg (27.0-32.0); Mean Corpuscular Volume 111.2 fL (81-99); Mean Platelet Vol. 9.4 fl (6.2-12.0); Monocyte# 1.13 X10^3/uL; Monocyte% 12.6 % (0-10); NRBC Flagged by Analyzer 0 % (0-5); Neutrophil # 5.89 X10^3/uL (2.7-7.7); Neutrophil % 65.9 % (47-70); POSITIVE MORPHOLOGY YES; Platelet Count 130 K/mm3 (150-450); RBC Distribution Width CV 16.5 % (11.6-14.6); RBC Distribution Width SD 67.6 fl (35.1-43.9); Red Blood Count 2.23 M/mm3 (4.2-5.4)
[2023-03-13 13:38] LABS: Differential Indicated SCAN CRITERIA MET
[2023-03-13 13:52] LABS: AST(SGOT) 9 U/L (15-37); Alanine Aminotransfer ALT/SGPT 14 U/L (13-56); Albumin, Serum 2.8 g/dL (3.2-5.0); Alkaline Phosphatase 68 U/L (45-117); Anion Gap 2 (5-15); BUN 9 mg/dL (7-18); BUN/Creat Ratio 11.8 RATIO (10-20); Calcium,Total 8.3 mg/dL (8.5-10.1); Chloride 103 mmol/L (98-107); Creatinine, Serum 0.76 mg/dL (0.55-1.02); EST Glomerular Filtration Rate 82 mL/min (>60); Est Glom Filt Rate - Afr Amer 99 mL/min (>60); Estimated Creatinine Clearance 79.27 ml/min; Globulin 3.1 g/dL (2.2-4.2); Glucose 80 mg/dL (74-106); Potassium 3.2 mmol/L (3.5-5.1); Protein, Total 5.9 g/dL (6.4-8.2); Sodium Level 136 mmol/L (136-145); Troponin-I HS 76 pg/mL (3.0-54.0)
[2023-03-13 13:55] LABS: Anisocytosis 1+; BNP,B-Type NATRIURETIC PEPTIDE 64.1 pg/mL (0-100)
--- NOTE | 2023-03-13 16:48 | CM.ED ---
Social Work Dr. Jo requests home oxygen for patient to avoid admission. SW facilitated home oxygen documentation [place] [facility] [place]ena took over for Dr. Jo and signed the oxygen order. Pt met criteria for home o2 on discharge and [employer] worker to the ED and spoke with patient and provided portable oxygen. Courtney Hernandez [employer], ACCOUNTING INTERN
== END 2023-03-13 17:11 | disposition home or self-care (01) ==
LOC: ED 12:55
PROVIDERS: Emergency Provider Emergency Medicine; PCP Family Medicine; Visit Provider Emergency Medicine
DX: E87.6 Hypokalemia (principal); I13.0 Hypertensive heart and chronic kidney disease with heart failure and stage 1 through stage 4 chronic kidney disease, or unspecified chronic kidney disease; I50.21 Acute systolic (congestive) heart failure; C50.919 Malignant neoplasm of unspecified site of unspecified female breast; N18.30 Chronic kidney disease, stage 3 unspecified; R09.02 Hypoxemia; Z90.13 Acquired absence of bilateral breasts and nipples; J90 Pleural effusion, not elsewhere classified; Z92.21 Personal history of antineoplastic chemotherapy; E78.5 Hyperlipidemia, unspecified; F32.A Depression, unspecified; Z79.899 Other long term (current) drug therapy; F41.8 Other specified anxiety disorders
CPT/HCPCS: 36591; 71275; 80048; 80076; 83880; 84484; 85025; 93005; 99283; Q9967; A4216